=== PATIENT | male | born 1960 | race Caucasian/White ===

== ENCOUNTER 2018-10-28 21:35 | Inpatient (IN) ==
[2018-10-28] MEDS ORDERED: Furosemide 40 MG/4 ML VIAL IVP ONE (21:50)
[2018-10-28] MEDS ORDERED: Ipratropium/Albuterol Neb 3 ML IH ONE (22:05)
[2018-10-28 22:07] LABS: ABG Base Excess 12 mEq/L (-2 to 3); ABG HCO3 40 mEq/L (21-27); ABG Oxygen Saturation 97 % (95-98); ABG PCO2 78 mmHg (35-45); ABG PH 7.32 pH Units (7.32-7.45); ABG PO2 105 mmHg (85-104); ABG TCO2 43 mEq/L (20-26)
--- NOTE | 2018-10-28 22:08 | Emergency Department Note ---
Disposition Clinical Impression: Hypoxia Congestive heart failure Qualifiers: Heart failure type: unspecified Heart failure chronicity: unspecified Qualified Code(s): I50.9 - Heart failure, unspecified COPD (chronic obstructive pulmonary disease) Qualifiers: COPD type: unspecified COPD Qualified Code(s): J44.9 - Chronic obstructive pulmonary disease, unspecified Disposition: Admitted As Inpatient Condition: Good General Adult HPI - General Chief complaint: ED Shortness of Breath/Dyspnea Stated complaint: Oxygen 78. Time Seen by Provider: 10/28/18 21:44 Source: patient, family Limitations: no limitations - History of Present Illness Pain Scale: 0 - Related Data Home Medications Medication Instructions Recorded Confirmed FLUoxetine HCl [Prozac] 40 mg PO DAILY 05/25/16 10/08/18 Levothyroxine [Synthroid] 88 mcg PO DAILY 05/25/16 10/08/18 Ropinirole HCl [Requip] 4 mg PO TID 05/25/16 10/08/18 Albuterol Sulfate [Ventolin Hfa] 2 puff IH Q6H PRN 10/08/18 10/08/18 Atorvastatin Calcium [Lipitor] 80 mg PO HS 10/08/18 10/08/18 Carvedilol 3.125 mg PO BID 10/08/18 10/08/18 Clopidogrel [Plavix] 75 mg PO DAILY 10/08/18 10/08/18 Losartan Potassium 50 mg PO DAILY 10/08/18 10/08/18 Nitroglycerin [Nitrostat] 0.4 mg SL AD PRN 10/08/18 10/08/18 Pioglitazone HCl 45 mg PO DAILY 10/08/18 10/08/18 glipiZIDE [Glipizide] 10 mg PO DAILY 10/08/18 10/08/18 Previous Rx's Medication Instructions Recorded Aspirin Enteric Coated [Aspirin EC] 81 mg PO DAILY 30 Days #30 10/10/18 tablet. Furosemide [Lasix] 40 mg PO BIDDIURETIC 30 Days #60 10/10/18 tablet Allergies Allergy/AdvReac Type Severity Reaction Status Date / Time lidocaine Allergy See Verified 05/25/16 12:43 [From Terramycin (with Comments lidocaine)] oxytetracycline Allergy See Verified 05/25/16 12:43 [From Terramycin (with Comments lidocaine)] Penicillins Allergy See Verified 05/25/16 12:43 Comments Sulfa (Sulfonamide Allergy See Verified 05/25/16 12:43 Antibiotics) Comments Past Medical History - Past Medical History Medical history: Reports: COPD, diabetes, thyroid disease, other Surgical history: Reports: other Psychiatric history: Reports: anxiety, depression - Social History Smoking Status: Current every day smoker Smokeless Tobacco Status: No Alcohol use: Reports: occasionally Drug use: Reports: none Physical Exam - General Limitations: no limitations General appearance: alert, in no apparent distress Course Vital Signs Temperature 98 F 10/28/18 21:47 Pulse Rate 52 10/28/18 21:47 Respiratory Rate 24 10/28/18 21:47 Blood Pressure 104/57 10/28/18 21:47 O2 Sat by Pulse Oximetry 100 10/28/18 21:47 Temperature 98 F 10/28/18 21:47 Pulse Rate 52 10/28/18 21:47 Respiratory Rate 24 10/28/18 21:47 Blood Pressure 104/57 10/28/18 21:47 O2 Sat by Pulse Oximetry 100 10/28/18 21:47 Oxygen Delivery Oxygen Delivery Nasal Cannula Attestation Statement - Attestation Attestation: I examined this patient and my medical decision-making was reviewed with the Resident Physician. I agree with the documented findings, disposition and treatment plan as described except to the extent set forth below. 57 year old male presents to the ED with complaints of dyspnea nd hypoxia. spouse at bedside states that he has been as low as 88% on 3LNC at home and has been complaining of increased fluid overload since his discharge from the hospitla recently. Patient will be started on IV lasix and bipap for acute change in mentation and increase in tachypnea. He was 78% on traige however is 96% on 3LNC at bedside now.
--- NOTE | 2018-10-28 22:11 | Emergency Department Note ---
Disposition Clinical Impression: Acute respiratory failure with hypoxia and hypercarbia Congestive heart failure Qualifiers: Heart failure type: unspecified Heart failure chronicity: unspecified Qualified Code(s): I50.9 - Heart failure, unspecified COPD (chronic obstructive pulmonary disease) Qualifiers: COPD type: unspecified COPD Qualified Code(s): J44.9 - Chronic obstructive pulmonary disease, unspecified Disposition: Admitted As Inpatient Condition: Fair Referrals: NONE,PCP [Primary Care Provider] - Forms: ED Satisfaction Letter Time of Disposition: 22:47 SOB HPI - General Stated Complaint: Oxygen 78. Time Seen by Provider: 10/28/18 21:44 Source: patient, family Limitations: no limitations Nursing Notes Reviewed: Yes Vital Signs Reviewed: Yes - History of Present Illness 37-year-old male presents from home with bedside for evaluation of hypoxia, bradycardia. Patient has a pulse ox at home. At approximately noon, he noted that his pulse ox was in the low 80s/70s. Patient's arrived home from work at approximate 6:30. He noted his heart rate was below 60 and his pulse ox was in the high 70s. This was on room air. He is on room air during the daytime with BiPAP in 2 L of normal oxygen at night. Patient also notes progressive lower extremity swelling which is been ongoing for the past week or so. PMH: COPD, CAD status post stent hypertension, diabetes, obstructive sleep apnea on CPAP, CHF ROS: No sign positive: As above Negative: Fever, chills, nausea, vomiting, cough, chest pain, palpitations, abdominal pain, change of bowel or bladder habits. - Related Data Home Medications Medication Instructions Recorded Confirmed FLUoxetine HCl [Prozac] 40 mg PO DAILY 05/25/16 10/08/18 Levothyroxine [Synthroid] 88 mcg PO DAILY 05/25/16 10/08/18 Ropinirole HCl [Requip] 4 mg PO TID 05/25/16 10/08/18 Albuterol Sulfate [Ventolin Hfa] 2 puff IH Q6H PRN 10/08/18 10/08/18 Atorvastatin Calcium [Lipitor] 80 mg PO HS 10/08/18 10/08/18 Carvedilol 3.125 mg PO BID 10/08/18 10/08/18 Clopidogrel [Plavix] 75 mg PO DAILY 10/08/18 10/08/18 Losartan Potassium 50 mg PO DAILY 10/08/18 10/08/18 Nitroglycerin [Nitrostat] 0.4 mg SL AD PRN 10/08/18 10/08/18 Pioglitazone HCl 45 mg PO DAILY 10/08/18 10/08/18 glipiZIDE [Glipizide] 10 mg PO DAILY 10/08/18 10/08/18 Previous Rx's Medication Instructions Recorded Aspirin Enteric Coated [Aspirin EC] 81 mg PO DAILY 30 Days #30 10/10/18 tablet. Furosemide [Lasix] 40 mg PO BIDDIURETIC 30 Days #60 10/10/18 tablet Allergies Allergy/AdvReac Type Severity Reaction Status Date / Time lidocaine Allergy See Verified 05/25/16 12:43 [From Terramycin (with Comments lidocaine)] oxytetracycline Allergy See Verified 05/25/16 12:43 [From Terramycin (with Comments lidocaine)] Penicillins Allergy See Verified 05/25/16 12:43 Comments Sulfa (Sulfonamide Allergy See Verified 05/25/16 12:43 Antibiotics) Comments All systems ED: reviewed and negative except as stated. Review of Systems: As Per HPI Past Medical History - Past Medical History Medical history: Reports: COPD, diabetes, thyroid disease, other Surgical history: Reports: other Psychiatric history: Reports: anxiety, depression - Social History Smoking Status: Current every day smoker Smokeless Tobacco Status: No Alcohol use: Reports: occasionally Drug use: Reports: none Physical Exam Vital Signs Reviewed General: Patient is alert, oriented, and in mild respiratory distress. He is bradypneic, bradycardic. Somnolent during interview. Head: atraumatic, normocephalic Eye: normal appearance, PERRL, no scleral icterus, no conjunctival injection ENT: mucous membranes moist, normal external ear exam Neck: normal inspection, trachea midline, full ROM Chest: normal inspection, symmetric chest rise Respiratory: Poor respiratory effort. Bilateral breath sounds are equal with poor air entry and scattered wheeze. No rales or rhonchi. Cardiovascular: Regular rate and rhythm. No clicks, rubs, gallops, or murmors. Normal heart sounds. Bilateral radial pulses 2/4 equal. Bilateral lower extremity venous stasis changes. 2+ pitting edema bilaterally. Abdomen: Bowel sounds present normoactive. Abdomen is soft, nondistended, and nontender. No guarding or rebound. Musculoskeletal: Spontaneously moving all extremities. Skin: warm, dry, intact. Neuro: GCS 15. No focal neurologic deficits observed. Psych: Patient's affect is appropriate for situation. - General Limitations: no limitations General appearance: alert, in no apparent distress Course Course Narrative: EV/EV echocardiogram w enhance Impressions: LVEF 55-60%. Mild concentric left ventricular hypertrophy. Indeterminate diastolic function. Atypical septal motion of unclear etiology. Clinical correlation is advised.. The right ventricle was not well visualized but appears grossly normal in function. The valves were not well visualized. No obvious significant valvular dysfunction. Unable to estimate RVSP due to lack of TR jet. Left Ventricular Wall Motion: Rest Echo Findings All wall segments showed normal motion. Crash cart placed bedside secondary to heart rate persistently in the high 40s. Patient placed on BiPAP. Triple dose of DuoNeb's. ABG. EKG. Lasix; patient appears clinically volume overloaded. EKG dated at 21:52 interpreted as first-degree AV block with a rate of 48, QRS 116, QTC 457, prolonged AL at approximately 200 ms. Normal axis. Nonspecific ST-T changes. Compared to previous EKG dated 10/06/2018 showing no acute ischemic changes or comparison. Serum hematology shows pancytopenia. Unknown cause at this time. Patient does have mild anemia however this is consistent with his baseline. ABG shows hypercarbia with CO2 78. This could explain the patients somnolence. He is placed on BiPAP. Serum chemistry shows normal renal function. Patients glucose was 42; provided one amp of D50. BNP slightly elevated at 102. Given patients obesity, this is an unreliable value. 40 mg IV Lasix provided. Chest x-ray shows pulmonary edema. This correlates clinically with acute exacerbation of congestive heart failure. Repeat glucose 114. Patient's blood pressure intake with systolic 104. After placement on BiPAP, he became hypotensive in the systolic 80s. Patient was awoken; blood pressure improved to systolic 97. Blood pressure cuff was repositioned and systolic returns to baseline of systolic 104. Provided 500 mL IV fluids regarding concern of possible third spacing. We will also check TSH to rule out myxedema as well as provide stress dose steroids. Patient's heart rate continues to be bradycardic in the mid to high 40s. He is on carvedilol is a rate limiting medication. Comparative EKG shows that he has previously been bradycardic in the 50s. I discussed the above with the admitting hospitalist, Dr. Harris, who agrees to accept the patient for continued evaluation and management of acute exacerbation CHF, acute on chronic respiratory failure. Will order blood cultures at his request. Chest X-Ray 10/28/18 21:50 IMPRESSION: Bilateral heterogeneous opacities may relate to mild pulmonary edema. Superimposed infectious/inflammatory process is not entirely excluded. Cardiomegaly. Overall, findings could relate to congestive heart failure. D/ / Jorge Sessions / Jorge Sessions Interpreting Provider: Jorge Sessions Vital Signs Temperature 98 F 10/28/18 21:47 Pulse Rate 52 10/28/18 21:47 Respiratory Rate 24 10/28/18 21:47 Blood Pressure 104/57 10/28/18 21:47 O2 Sat by Pulse Oximetry 100 10/28/18 21:47 Temperature 98 F 10/28/18 21:47 Pulse Rate 48 10/28/18 23:43 Respiratory Rate 16 10/28/18 23:43 Blood Pressure 93/58 10/28/18 23:43 O2 Sat by Pulse Oximetry 100 10/28/18 23:43 Oxygen Delivery Oxygen Delivery Bipap Shortness of Breath/Dyspnea - Lab Data Result diagrams: 10/28/18 22:02 10/28/18 22:02 Lab Results 10/28/18 10/28/18 10/28/18 Range/Units 22:02 22:02 22:02 WBC 3.5 L (4.3-11.1) K/mcL RBC 3.53 L (4.19-5.50) M/mcL Hgb 9.7 L (12.9-16.9) g/dL Hct 32.5 L (37.5-50.1) % MCV 92.1 (83.0-100.0) fL MCH 27.5 L (28.0-33.3) pg MCHC 29.8 L (31.6-35.5) g/dL RDW 17.1 H (11.5-14.5) % Plt Count 69 L (140-400) K/mcL MPV 9.1 L (9.4-12.4) fL Immature Gran % 0.6 (0-4) % Seg Neutrophils % 46.0 % Lymphocytes % 19.1 % Monocytes % 7.8 % Eosinophils % 25.1 % Basophils % 1.4 % Neutrophils # 1.6 (1.6-8.9) K/mcL Lymphocytes # 0.7 (0.6-4.6) K/mcL Monocytes # 0.3 (0.0-1.3) K/mcL Eosinophils # 0.9 H (0.0-0.6) K/mcL Basophils # 0.1 (0.0-0.2) K/mcL Immature Plt Fraction 2.1 (1.1-6.1) % PT 12.2 H (9.4-12.1) Seconds INR 1.1 APTT 46.5 H (26.0-36.0) Seconds ABG pH (7.32-7.45) pH Units ABG pCO2 (35-45) mmHg ABG pO2 (85-104) mmHg ABG HCO3 (21-27) mEq/L ABG Total CO2 (20-26) mEq/L ABG O2 Saturation (95-98) % ABG Base Excess (-2 to 3) mEq/L O2 Delivery Device Inspired O2 (1-15=lpm [id number]=%) Sodium (136-145) mEq/L Potassium (3.5-5.1) mEq/L Chloride (98-107) mEq/L Carbon Dioxide (23-29) mEq/L BUN (6-20) mg/dL Creatinine (0.70-1.30) mg/dL Est GFR ( Amer) (> 60) Est GFR (Non-Af Amer) (> 60) BUN/Creatinine Ratio (6-26) Glucose (70-105) mg/dL Calculated Osmolality (280-300) Lactic Acid (0.5-2.2) mmol/L Calcium (8.6-10.3) mg/dL Total Bilirubin (0.3-1.0) mg/dL Direct Bilirubin (0.0-0.2) mg/dL Indirect Bilirubin (0.0-1.2) mg/dL AST (13-39) Units/L ALT (7-52) Units/L Alkaline Phosphatase (34-104) Units/L Troponin I (< 0.04) ng/mL B-Natriuretic Peptide 102 H (Less than 100) pg/mL Serum Total Protein (6.4-8.9) g/dL Albumin (3.5-5.7) g/dL Globulin (2.4-3.5) g/dL Albumin/Globulin Ratio (1.1-2.2) 10/28/18 10/28/18 10/28/18 Range/Units 22:02 22:04 23:25 WBC (4.3-11.1) K/mcL RBC (4.19-5.50) M/mcL Hgb (12.9-16.9) g/dL Hct (37.5-50.1) % MCV (83.0-100.0) fL MCH (28.0-33.3) pg MCHC (31.6-35.5) g/dL RDW (11.5-14.5) % Plt Count (140-400) K/mcL MPV (9.4-12.4) fL Immature Gran % (0-4) % Seg Neutrophils % % Lymphocytes % % Monocytes % % Eosinophils % % Basophils % % Neutrophils # (1.6-8.9) K/mcL Lymphocytes # (0.6-4.6) K/mcL Monocytes # (0.0-1.3) K/mcL Eosinophils # (0.0-0.6) K/mcL Basophils # (0.0-0.2) K/mcL Immature Plt Fraction (1.1-6.1) % PT (9.4-12.1) Seconds INR APTT (26.0-36.0) Seconds ABG pH 7.32 (7.32-7.45) pH Units ABG pCO2 78 H* (35-45) mmHg ABG pO2 105 H (85-104) mmHg ABG HCO3 40 H (21-27) mEq/L ABG Total CO2 43 H (20-26) mEq/L ABG O2 Saturation 97 (95-98) % ABG Base Excess 12 H (-2 to 3) mEq/L O2 Delivery Device Cannula Inspired O2 3.0 (1-15=lpm [id number]=%) Sodium 135 L (136-145) mEq/L Potassium 4.1 (3.5-5.1) mEq/L Chloride 94 L (98-107) mEq/L Carbon Dioxide 39 H (23-29) mEq/L BUN 22 H (6-20) mg/dL Creatinine 0.84 (0.70-1.30) mg/dL Est GFR ( Amer) > 60 (> 60) Est GFR (Non-Af Amer) > 60 (> 60) BUN/Creatinine Ratio 26 (6-26) Glucose 42 L (70-105) mg/dL Calculated Osmolality 280 (280-300) Lactic Acid 0.6 (0.5-2.2) mmol/L Calcium 8.5 L (8.6-10.3) mg/dL Total Bilirubin 0.8 (0.3-1.0) mg/dL Direct Bilirubin 0.2 (0.0-0.2) mg/dL Indirect Bilirubin 0.6 (0.0-1.2) mg/dL AST 35 (13-39) Units/L ALT 16 (7-52) Units/L Alkaline Phosphatase 73 (34-104) Units/L Troponin I < 0.03 (< 0.04) ng/mL B-Natriuretic Peptide (Less than 100) pg/mL Serum Total Protein 6.7 (6.4-8.9) g/dL Albumin 3.3 L (3.5-5.7) g/dL Globulin 3.4 (2.4-3.5) g/dL Albumin/Globulin Ratio 1.0 L (1.1-2.2)
[2018-10-28 22:15] LABS: Hematocrit 32.5 % (37.5-50.1); Monocytes % 7.8 %; Red Cell Distribution Width 17.1 % (11.5-14.5)
[2018-10-28 22:17] LABS: Basophils # 0.1 K/mcL (0.0-0.2); Basophils % 1.4 %; Eosinophils # 0.9 K/mcL (0.0-0.6); Eosinophils % 25.1 %; Hemoglobin 9.7 g/dL (12.9-16.9); Immature Granulocytes % 0.6 % (0-4); Immature Platelets 2.1 % (1.1-6.1); Lymphocytes # 0.7 K/mcL (0.6-4.6); Lymphocytes % 19.1 %; Mean Corpuscular HGB Conc 29.8 g/dL (31.6-35.5); Mean Corpuscular Hemoglobin 27.5 pg (28.0-33.3); Mean Corpuscular Volume 92.1 fL (83.0-100.0); Mean Platelet Volume 9.1 fL (9.4-12.4); Monocytes # 0.3 K/mcL (0.0-1.3); Neutrophils # 1.6 K/mcL (1.6-8.9); Red Blood Count 3.53 M/mcL (4.19-5.50)
[2018-10-28 22:21] LABS: Platelet Count 69 K/mcL (140-400)
[2018-10-28 22:22] LABS: INR 1.1; Prothrombin Time 12.2 Seconds (9.4-12.1)
[2018-10-28 22:25] LABS: Activated Partial Thrombo Time 46.5 Seconds (26.0-36.0)
[2018-10-28 22:36] LABS: BUN/Creatinine Ratio 26 (6-26); Blood Urea Nitrogen 22 mg/dL (6-20); Calcium 8.5 mg/dL (8.6-10.3); Carbon Dioxide 39 mEq/L (23-29); Chloride 94 mEq/L (98-107); Glucose 42 mg/dL (70-105); Osmolality,Calculated 280 (280-300); Potassium 4.1 mEq/L (3.5-5.1); Sodium 135 mEq/L (136-145); eGFR For Non-African Americans > 60 (> 60)
[2018-10-28 22:37] LABS: Troponin I < 0.03 ng/mL (< 0.04)
[2018-10-28] MEDS ORDERED: *HR* Dextrose 50 % in Water (Syg) 50 ML SYRINGE IVP ONE (22:39)
[2018-10-28] MEDS ORDERED: 0.9 % Sodium Chloride 500 ML IVC ONE (23:06)
[2018-10-28] MEDS ORDERED: Hydrocortisone Sodium Succ 100 MG/2 ML VIAL IVP ONE (23:06)
[2018-10-28] MEDS ORDERED: *HR* Atropine Sulfate 1 MG/10 ML SYRINGE IVP ONE (23:06)
[2018-10-28 23:27] LABS: Alanine Aminotransferase 16 Units/L (7-52); Albumin 3.3 g/dL (3.5-5.7); Alkaline Phosphatase 73 Units/L (34-104); Aspartate Amino Transferase 35 Units/L (13-39); Bilirubin,Direct 0.2 mg/dL (0.0-0.2); Bilirubin,Indirect 0.6 mg/dL (0.0-1.2); Bilirubin,Total 0.8 mg/dL (0.3-1.0); Globulin 3.4 g/dL (2.4-3.5); Total Protein 6.7 g/dL (6.4-8.9)
[2018-10-29 00:43] LABS: Thyroid Stimulating Hormone 0.379 mcIU/mL (0.340-5.600)
[2018-10-29] MEDS ORDERED: Naloxone 0.4 MG/ML INJ IVP PRN (02:46)
[2018-10-29] MEDS ORDERED: Dextrose 4 GM Chewable Tablets PO PRN ×2 (02:48)
[2018-10-29] MEDS ORDERED: D5% in Water 1,000 ML IVC PRN (02:48)
[2018-10-29] MEDS ORDERED: *HR* Dextrose 50 % in Water (Syg) 50 ML SYRINGE IVP PRN (02:48)
[2018-10-29] MEDS ORDERED: Dextrose Gel 15 GM/37.5 ML TUBE PO PRN ×2 (02:48)
--- NOTE | 2018-10-29 03:04 | Internal Med History&Physical ---
<Darin Pedersenrett W - Last Filed: 10/29/18 05:35> Date of Encounter: 10/29/18 Time of Encounter: 02:55 Internal Medicine - H&P: HPI Chief complaint: SOB Admitted From: Home History of present illness: Mr. Burr is a 57 year old male with past medical history of COPD, coronary artery disease with stent placement, DM, YENNY requiring CPAP and congestive heart failure, obesity. presents to the ED with hypoxia and bradycardia. Patient has a pulse ox at home and noted he had saturations in the 70s and 80s. He tried to wait it out and his came home they noted his pulse rate was below 60 and his sats were in the high 70s on room air. Decided to come into the ED. Patient has obstructive sleep apnea requiring BiPAP with 2 L at night. Patient states he has not felt like consult today. He has had difficulty walking due to just generalized weakness. Denies any confusion but does admit to not being himself. Patient states lower extremities swelling is been worse over the past week or 2. Patient denies any fevers, chills, cough, night sweats. Patient was placed on BiPAP in the ED due to acute respiratory failure with hypercarbia. Patient was also given atropine due to bradycardia. EKG found first-degree AV block. Patient denies chest pain, abdominal pain, nausea, vomiting, diarrhea, numbness, tingling, localized weakness, rash, lightheadedness, dysuria Past Med Surg Social Fam HX - Past Medical History Medical history: COPD, diabetes, thyroid disease, other Additional medical history: sleep apnea Psychiatric history: anxiety, depression - Past Surgical History Surgical History: other Additional surgical history: Cardiac stent x 1. tonsillectomy - Social History Smoking Status: Current every day smoker Packs per day: 1 Smokeless Tobacco Status: No Alcohol use: occasionally Drug use: none - Family History Mother Living Status: Hx Family Cardiac Disorders: Yes Hx Family Respiratory Disorders: No Hx Family Cancer: Yes Hx Family GI Disorders: No Hx Family Endocrine Disorder: Yes Hx Family Neuromuscular Disorders: No Hx Family Neurologic Disorders: No Hx Family HEENT Disorders: Yes Hx Family Autoimmune Disorders: No Internal Medicine - H&P: Meds FLUoxetine HCl [Prozac] 40 mg PO DAILY 05/25/16 [History] Levothyroxine [Synthroid] 88 mcg PO DAILY 05/25/16 [History] Ropinirole HCl [Requip] 4 mg PO TID 05/25/16 [History] Albuterol Sulfate [Ventolin Hfa] 2 puff IH Q6H PRN 10/08/18 [History] Atorvastatin Calcium [Lipitor] 80 mg PO HS 10/08/18 [History] Carvedilol 3.125 mg PO BID 10/08/18 [History] Clopidogrel [Plavix] 75 mg PO DAILY 10/08/18 [History] Losartan Potassium 50 mg PO DAILY 10/08/18 [History] Nitroglycerin [Nitrostat] 0.4 mg SL AD PRN 10/08/18 [History] Pioglitazone HCl 45 mg PO DAILY 10/08/18 [History] glipiZIDE [Glipizide] 10 mg PO DAILY 10/08/18 [History] Aspirin Enteric Coated [Aspirin EC] 81 mg PO DAILY 30 Days #30 tablet. [Rx] Furosemide [Lasix] 40 mg PO BIDDIURETIC 30 Days #60 tablet 10/10/18 [Rx] Allergy/AdvReac Type Severity Reaction Status Date / Time lidocaine Allergy See Verified 05/25/16 12:43 [From Terramycin (with Comments lidocaine)] oxytetracycline Allergy See Verified 05/25/16 12:43 [From Terramycin (with Comments lidocaine)] Penicillins Allergy See Verified 05/25/16 12:43 Comments Sulfa (Sulfonamide Allergy See Verified 05/25/16 12:43 Antibiotics) Comments All Systems PM: A 10-system review of systems was performed and is negative for pertinent findings except as documented above in the HPI. - Constitutional Constitutional: as per HPI - EENT Eyes: as per HPI - Cardiovascular Cardiovascular ROS IM: as per HPI - Respiratory Respiratory: as per HPI - Gastrointestinal Gastrointestinal: as per HPI - Genitourinary Genitourinary ROS male: as per HPI - Musculoskeletal Musculoskeletal ROS IM: as per HPI - Integumentary Integumentary IM: as per HPI - Neurological Neurological ROS: as per HPI - Psychiatric Psychiatric: as per HPI - Endocrine Endocrine IM: as per HPI - Constitutional Vitals: Temp Pulse Resp BP Pulse Ox 97.4 F L 51 12 146/82 100 10/29/18 02:24 10/29/18 02:04 10/29/18 02:04 10/29/18 02:04 10/29/18 02:04 General appearance: Present: A&O X 3, morbidly obese, answers questions appropriately Exam: Patient is lying in bed. He is conversational. Patient takes increase time to answer questions but does answer appropriately - Head Head exam: Present: atraumatic, normocephalic - Eye Eye exam: Present: PERRL, conjuntiva pink, sclera anicteric Pupils: Present: PERRL - ENT ENT exam: Present: mucous membranes moist - Neck Neck exam general surgery: Present: supple, trachea midline. Absent: lymphadenopathy - Respiratory Respiratory exam: Present: CTAB, wheezes (Moderate diffuse). Absent: respiratory distress Additional comments: Patient was placed off BiPAP as nurses were trying to get a sublingual temperature. He was remained on nasal cannula during the entire interview and did not appear to be in any respiratory distress - Cardiovascular Cardiovascular exam: Present: RRR, +S1, +S2. Absent: diastolic murmur, gallop, rubs, systolic murmur - GI/Abdominal GI/Abdominal exam: Present: normal bowel sounds, soft, no peritoneal signs. Absent: distended, tenderness - Extremities Exam Extremities exam: Present: pedal edema (2+), warm, radial pulses palpable and symmetrical. Absent: tenderness Additional comments: Bilateral lower extremity chronic skin changes with dryness and cracking and swelling - Neurological Exam Neurological exam: Present: alert, oriented X3. Absent: no focal deficits, pronater drift, facial droop, speech deficit - Psychiatric Psychiatric exam: Present: normal affect, normal mood - Skin Skin exam: Present: dry, intact Internal Med - H&P Results - Labs CBC & Chem 7: 10/28/18 22:02 10/28/18 22:02 Labs: Short CBC 10/28/18 Range/Units 22:02 WBC 3.5 L (4.3-11.1) K/mcL Hgb 9.7 L (12.9-16.9) g/dL Hct 32.5 L (37.5-50.1) % Plt Count 69 L (140-400) K/mcL Neutrophils # 1.6 (1.6-8.9) K/mcL BMP 10/28/18 22:02 Sodium 135 L Potassium 4.1 Chloride 94 L Carbon Dioxide 39 H BUN 22 H Creatinine 0.84 Glucose 42 L Calcium 8.5 L Cardiac Enzymes 10/28/18 Range/Units 22:02 Troponin I < 0.03 (< 0.04) ng/mL Liver Function 10/28/18 Range/Units 22:02 Total Bilirubin 0.8 (0.3-1.0) mg/dL Direct Bilirubin 0.2 (0.0-0.2) mg/dL AST 35 (13-39) Units/L ALT 16 (7-52) Units/L Alkaline Phosphatase 73 (34-104) Units/L Albumin 3.3 L (3.5-5.7) g/dL - ABG Interpretation ABG results: 10/28/18 22:04 ABG pH 7.32 ABG pCO2 78 H* ABG pO2 105 H ABG HCO3 40 H ABG Total CO2 43 H ABG O2 Saturation 97 ABG Base Excess 12 H - Impressions ITS Impressions Chest X-Ray 10/28/18 21:50 IMPRESSION: Bilateral heterogeneous opacities may relate to mild pulmonary edema. Superimposed infectious/inflammatory process is not entirely excluded. Cardiomegaly. Overall, findings could relate to congestive heart failure. D/ / Jorge Sessions / Jorge Sessions Interpreting Provider: Jorge Sessions - Assessment and Plan (1) Acute on chronic respiratory failure with hypoxia and hypercapnia Current Visit: No Status: Acute Assessment and plan: Patient with a history of COPD and obstructive sleep apnea requiring BiPAP at night Noted to have hypoxia and bradycardia at home via home pulse ox monitor. Pulses in high 70s and pulse in low 50s Presented to ED requiring BiPAP Chest x-ray, cardiomegaly and a possible pneumonia or edema bilateral ABG pH 7.32, CO2 78, PO2 105, HCO3 40, O2 sat 97% Patient has remained afebrile, has pancytopenia: low suspicion for infectious process. Likely COPD exacerbation, low suspicion for CHF exacerbation Plan: broadspectrum antibiotics deescalate as necesary Continue BiPAP at night, trial off bipap in the AM Repeat ABG Diabetic diet during the day Scheduled duo nebs Prednisone, taper as necesary (2) Bradycardia Current Visit: Yes Status: Acute Assessment and plan: Patient had heart rates in the mid to high 40s. Patient is on carvedilol EKG is interpreted as first-degree AV block her heart rate is 56 QRS 116, QTC 47, prolonged CO at approximately [address] segment changes Patient has been bradycardic in the past 0.5 mg atropine was given showed improvement of heart rate Current heart rate 54 Plan: hall monitor Hold carvedilol Continue to monitor (3) Hypoglycemia Current Visit: Yes Status: Acute Assessment and plan: Patient did have a blood glucose 42 1 amp of D50 was given Repeat glucose is 114 Patient has a history of diabetes mellitus Plan: Continue to monitor Consider sliding scale insulin if blood glucose becomes elevated (4) COPD (chronic obstructive pulmonary disease) Current Visit: Yes Status: Acute Assessment and plan: History of COPD Physical exams with diffuse wheezing Possible COPD exacerbation Plan as #1 above Qualifiers: COPD type: unspecified COPD Qualified Code(s): J44.9 - Chronic obstructive pulmonary disease, unspecified (5) Congestive heart failure Current Visit: Yes Status: Acute Assessment and plan: History of congestive heart failure BNP 102 Clinically patient appears to be volume overloaded 1 dose of Lasix was given in ED Continue home dose Lasix Qualifiers: Heart failure type: unspecified Heart failure chronicity: unspecified Qualified Code(s): I50.9 - Heart failure, unspecified (6) Pancytopenia Current Visit: Yes Status: Acute Assessment and plan: Chronic etiology unknown Heme/onc consulted, appreciate recs (7) Obstructive sleep apnea syndrome Current Visit: No Status: Chronic Assessment and plan: Continue BiPAP Findings portable (8) CAD (coronary artery disease) Current Visit: No Status: Acute Assessment and plan: Continue medications once verified EKG found no ischemic changes Troponin within normal limits Qualifiers: Coronary Disease-Associated Artery/Lesion type: [place] artery [place] vs. transplanted heart: [place] heart Associated angina: without angina Qualified Code(s): I25.10 - Atherosclerotic heart disease of [place] coronary artery wit hout angina pectoris (9) Hypothyroidism Current Visit: No Status: Chronic Assessment and plan: Continue Synthroid Qualifiers: Hypothyroidism type: acquired Qualified Code(s): E03.9 - Hypothyroidism, unspecified (10) Diabetes mellitus Current Visit: No Status: Chronic Assessment and plan: Watch for hypoglycemia Sliding-scale insulin Qualifiers: Diabetes mellitus type: type 2 Diabetes mellitus residential insulin use: without residential use Diabetes mellitus complication status: with unspecified complications Qualified Code(s): E11.8 - Type 2 diabetes mellitus with unspecified complications (11) Hypertension Current Visit: No Status: Acute Assessment and plan: Hold medications due to bradycardia and hypotension Patient did show some low blood pressures Old medications continue to monitor Qualifiers: Hypertension type: essential hypertension Qualified Code(s): I10 - Essential (primary) hypertension (12) Morbid obesity with BMI of 50.0-59.9, adult Current Visit: No Status: Chronic (13) DVT prophylaxis Current Visit: No Status: Acute Assessment and plan: heparin sq - Time Spent With Patient Total time spent is greater than 50% in coordination of care (as documented) at patient's floor/unit and/or counseling patient: <Jarrod Harris - Last Filed: 10/29/18 06:51> Date of Encounter: 10/29/18 Time of Encounter: 06:15 - Constitutional Constitutional: fatigue, lethargy, no chills, no fever(s), no night sweats - EENT Eyes: no change in vision Ears: no ear pain, no tinnitus Nose, mouth and throat: nasal congestion, sinus pressure, no sore throat - Cardiovascular Cardiovascular ROS IM: dyspnea, dyspnea on exertion, edema, no chest pain - Respiratory Respiratory: cough, dyspnea, wheezing, chest congestion, no hemoptysis, no excessive phlegm production, no change in phlegm color, no pain with cough - Gastrointestinal Gastrointestinal: no abdominal pain, no diarrhea, no hematemesis, no hematochezia, no melena, no nausea, no vomiting - Genitourinary Genitourinary ROS male: no dysuria, no flank pain, no hematuria - Musculoskeletal Musculoskeletal ROS IM: no arthralgias, no back pain - Integumentary Integumentary IM: no rash, no jaundice - Neurological Neurological ROS: no dizziness, no focal weakness, no frequent falls, no headache(s) - Psychiatric Psychiatric: confusion, no anxiety - Endocrine Endocrine IM: fatigue, no polydipsia, no polyuria - Allergic/Immunologic Allergic/Immunologic: no GI upset with certain foods - Constitutional Vitals: Temp Pulse Resp BP Pulse Ox 97.4 F L 51 18 146/82 97 10/29/18 02:24 10/29/18 02:04 10/29/18 04:25 10/29/18 02:04 10/29/18 04:25 General appearance: Present: A&O X 3, no acute distress, answers questions appropriately - Head Head exam: Present: normal inspection - Eye Eye exam: Present: PERRL. Absent: scleral icterus - ENT ENT exam: Present: mucous membranes moist, normal oropharynx - Neck Neck exam general surgery: Present: supple, trachea midline. Absent: tenderness, nuchal rigidity, thyromegaly - Respiratory Respiratory exam: Present: rales (right base), wheezes (mild). Absent: CTAB, respiratory distress - Cardiovascular Cardiovascular exam: Present: distant heart sounds, +S1, +S2. Absent: diastolic murmur, systolic murmur - GI/Abdominal GI/Abdominal exam: Present: normal bowel sounds, soft. Absent: tenderness - Extremities Exam Extremities exam: Present: full ROM, pedal edema, warm, radial pulses palpable and symmetrical. Absent: calf tenderness Additional comments: chronic venous stasis changes - Neurological Exam Neurological exam: Present: alert, CN II-XII intact, oriented X3, no focal deficits Internal Med - H&P Results - Labs CBC & Chem 7: 10/28/18 22:02 10/28/18 22:02 Labs: Short CBC 10/28/18 Range/Units 22:02 WBC 3.5 L (4.3-11.1) K/mcL Hgb 9.7 L (12.9-16.9) g/dL Hct 32.5 L (37.5-50.1) % Plt Count 69 L (140-400) K/mcL Neutrophils # 1.6 (1.6-8.9) K/mcL BMP 10/28/18 22:02 Sodium 135 L Potassium 4.1 Chloride 94 L Carbon Dioxide 39 H BUN 22 H Creatinine 0.84 Glucose 42 L Calcium 8.5 L Cardiac Enzymes 10/28/18 Range/Units 22:02 Troponin I < 0.03 (< 0.04) ng/mL Liver Function 10/28/18 Range/Units 22:02 Total Bilirubin 0.8 (0.3-1.0) mg/dL Direct Bilirubin 0.2 (0.0-0.2) mg/dL AST 35 (13-39) Units/L ALT 16 (7-52) Units/L Alkaline Phosphatase 73 (34-104) Units/L Albumin 3.3 L (3.5-5.7) g/dL - ABG Interpretation ABG results: 10/28/18 22:04 ABG pH 7.32 ABG pCO2 78 H* ABG pO2 105 H ABG HCO3 40 H ABG Total CO2 43 H ABG O2 Saturation 97 ABG Base Excess 12 H - Impressions ITS Impressions Chest X-Ray 10/28/18 21:50 IMPRESSION: Bilateral heterogeneous opacities may relate to mild pulmonary edema. Superimposed infectious/inflammatory process is not entirely excluded. Cardiomegaly. Overall, findings could relate to congestive heart failure. D/ / Jorge Sessions / Jorge Sessions Interpreting Provider: Jorge Sessions - Time Spent With Patient Total time spent is greater than 50% in coordination of care (as documented) at patient's floor/unit and/or counseling patient: - Attending Attestation I discussed the patient OUZINKIE, past medical history, review of systems, lab data, imaging data, and exam findings with Dr. Pedersen. I then saw and examined patient independently as well. Based upon his presentation, laboratory analysis, and imaging findings, I am concerned about underlying pneumonia/COPD flareup as etiology for his altered mental status and respiratory failure. Presently, he is wide awake, oriented 3, and in no distress. However, based upon my discussion with the ER staff earlier, he presented confused, weak, hypotensive, bradycardic, and in respiratory failure. He was placed on BiPAP with improvement in symptoms and clinical picture. I asked the ER staff to obtain blood cultures, but these were not obtained prior to initiation of antibiotics. As such, we will order blood cultures to be obtained as soon as possible. Patient has evidence of pancytopenia which could be secondary to sepsis. However, this is chronic and not new. Nonetheless, we will obtain blood cultures to rule out bacteremia. I questioned him about liver disease or splenic disease. He denies any history of cirrhosis, alcohol use or abuse, or any functional asplenia. Given his pancytopenia, I recommend hematology consultation as he may need bone marrow biopsy and/or further hematologic workup. Although frustrated, patient agrees with my recommendation and plan of care. Other than my comments above and noted exam findings, I agree with Dr. Pedersen's assessment and plan.
[2018-10-29] MEDS: Ipratropium/Albuterol Neb 3 ML IH SCH ×4 (04:25→22:20)
[2018-10-29] MEDS ORDERED: Azithromycin 500 MG in D5% in Water 250 ML IVPB ONE (04:57)
[2018-10-29] MEDS: *HR* Heparin 5,000 UNIT/ML VIAL SQ SCH ×2 (06:16→17:04)
[2018-10-29 07:05] LABS: Basophils % 0.8 %; Hemoglobin 9.7 g/dL (12.9-16.9); Immature Granulocytes % 1.6 % (0-4)
[2018-10-29 07:07] LABS: Eosinophils # 0.2 K/mcL (0.0-0.6); Eosinophils % 6.4 %; Hematocrit 32.9 % (37.5-50.1); Immature Platelets 2.2 % (1.1-6.1); Lymphocytes # 0.5 K/mcL (0.6-4.6); Lymphocytes % 20.4 %; Mean Corpuscular HGB Conc 29.5 g/dL (31.6-35.5); Mean Corpuscular Hemoglobin 27.5 pg (28.0-33.3); Mean Corpuscular Volume 93.2 fL (83.0-100.0); Mean Platelet Volume 9.3 fL (9.4-12.4); Monocytes # 0.1 K/mcL (0.0-1.3); Monocytes % 3.6 %; Neutrophils # 1.7 K/mcL (1.6-8.9); Red Blood Count 3.53 M/mcL (4.19-5.50); Segmented Neutrophils % 67.2 %
[2018-10-29 07:09] LABS: Platelet Count 62 K/mcL (140-400)
[2018-10-29 07:10] LABS: Platelet Estimate Marked Decrease (Normal)
[2018-10-29 07:22] LABS: Alanine Aminotransferase 15 Units/L (7-52); Albumin 3.3 g/dL (3.5-5.7); Albumin/Globulin Ratio 0.9 (1.1-2.2); Alkaline Phosphatase 75 Units/L (34-104); Aspartate Amino Transferase 34 Units/L (13-39); BUN/Creatinine Ratio 32 (6-26); Bilirubin,Total 0.8 mg/dL (0.3-1.0); Blood Urea Nitrogen 25 mg/dL (6-20); Calcium 8.7 mg/dL (8.6-10.3); Carbon Dioxide 38 mEq/L (23-29); Chloride 93 mEq/L (98-107); Globulin 3.5 g/dL (2.4-3.5); Glucose 145 mg/dL (70-105); Osmolality,Calculated 283 (280-300); Potassium 4.9 mEq/L (3.5-5.1); Sodium 133 mEq/L (136-145); Total Protein 6.8 g/dL (6.4-8.9); eGFR For Non-African Americans > 60 (> 60)
[2018-10-29] MEDS: Furosemide 40 MG TABLET PO SCH ×2 (07:48→17:07)
[2018-10-29] MEDS: FLUoxetine 20 MG CAPSULE PO SCH ×2 (08:06→17:07)
[2018-10-29] MEDS: predniSONE 20 MG TABLET PO SCH ×2 (08:06→17:07)
[2018-10-29] MEDS: cefTRIAXone 1,000 MG in Water for inj. (sterile) 20 ML 10 ML IVP SCH (08:49)
[2018-10-29] MEDS ORDERED: rOPINIRole 1 MG TABLET PO SCH ×2 (09:00→21:00)
--- NOTE | 2018-10-29 09:09 | Event Note ---
Date of Encounter: 10/29/18 Time of Encounter: 10:00 Mr Burr is 57 with pmhx copd cad s/p pci DM YENNY, obesity, cpap HS, CHF w echo 09/2018 EF 55-60%, indeterminant diastolic dysfunction who presented to ED with hypoxia and bradycardia. Had home o2 sats 70s on room air and HR was below 60. Noted to ahve acute resp failure with hypercarbia and placed on bipap. He was given atropine and EKG showed first degree AV block. awake, bipap in place. no sob , cough or wheezing. feeling overall better. denies any cp, pressure, palpitations. no presyncope though he notes he hasn't been out of bed. refused repeat abg, but agreeable to vbg. no family present. Updated as to today's plan of care. gen- alert, awake,appears stated age, obese eyes- pupils equal round cv- reg rate and rhythm, normal s1,s2, no murmurs appreciated, no pitting le edema, no jvd lungs- ctabl, no wheezing, rhonchi or crackles, normal resp effort on bipap abd- soft, non tender, non distended, + bs, no HSM appreciated neuro- AAOx3, CN grossly intact, no focal deficits Acute on Chronic RF with hypoxia and hypercapnia CXR possible pna and edema Possible COPDE, Less likley Diastolic CHF exacerbation given exam and BNP only 102 -azithro, rocephin, vanc, bipap, repeat abg refused by pt, vbg obtained, corrected ph 7.3, would estimate pco2 to be about 82, cont continuous bipap, nebs, steroids, s/p IV lasix in ED, cont to monitor fluid status, cont home lasix -will attempt to identify organism -will attempt to obtain abg later today Bradycardia, sinus, first degree AVB on coreg at home, hx bradycardia in past, s/p atropine x1 in ED, ekg without ischemic changes, glucose was 42 and may have been contributing, tsh wnl -cont tele, hold coreg, check echo Pancytopenia, uk etiology- heme onc consulted, US liver pending CAD hx- no ischemic ekg changes, trop normal, cont home statin, plavix, asa, holding coreg and losartan Hypothyroidism-synthroid DM- SSI and prn hypoglycemics, home oral agents held HTN- hypotensive in ED, holding home meds as above, add back as needed/able Morbid obesity- bmi 58.2, lifestyle modifications, pcp fu vte ppx sqh
--- NOTE | 2018-10-29 10:09 | Oncology Inp Consult Note ---
<Rosario Alves - Last Filed: 10/29/18 13:10> Date of Encounter: 10/29/18 Time of Encounter: 09:45 Assessment and Plan (1) Pancytopenia Status: Acute Assessment and plan: Pancytopenia Leukopenia: 06/08: WBC 4.3 ANC 3.1 10/12: WBC 3.1-3.8, ANC 1.6-2 10/29/18: WBC 2.5, ANC 1.7 Anemia normocytic, hypochromic 06/08: Hbg 13.4 10/12: Hgb 9.3-9.7 10/29/18: Hgb 9.7 Thrombocytopenia 06/08: Plts 97 10/12: Plts 77-99 10/29/18: Plts 62 PT 12.2/ INR 1.1 aPTT 46.5 Peripheral smear: Erythrocytes: Moderate anemia with 1+ hypochromia and 1+ anisocytosis; otherwise, unremarkable morphology. Platelets: Moderate thrombocytopenia. Leukocytes: Automated differential confirmed on manual review. Mildly decreased lymphocytes. Unremarkable leukocyte morphology. Iron profile: Fe 34, saturation 11% transferrin 212 , ferritin 143 B12 1091, folate 8.9, LDH 187 Acute hepatitis panel and HIV pending Plan: Repeat PT/INR and aPTT due to prolonged PT and aPTT. Liver ultrasound per primary team today. LFT's WNL May consider a bone marrow aspirate and biopsy to rule out underlying malignancy. (2) DVT prophylaxis Status: Acute Assessment and plan: Patient receiving Heparin 5000 units SQ every 12 hours. Plan: Continue to monitor. If platelet count < 50, hold Heparin injections. Consider SCD's, if possible. (3) CAD (coronary artery disease) Status: Acute Assessment and plan: Patient currently receiving Plavix 75 mg and Aspirin 81 mg PO daily. Coreg on hold due to bradycardia upon admission. Qualifiers: Coronary Disease-Associated Artery/Lesion type: [place] artery [place] vs. transplanted heart: [place] heart Associated angina: without angina Qualified Code(s): I25.10 - Atherosclerotic heart disease of [place] coronary artery without angina pectoris - Data of Consult Patient: new to practice Consult date: 10/29/18 Requesting Physician: Jarrod Harris MD Primary Care Provider: PCP NONE - Consult Narrative Reason for consult: pancytopenia History of present illness: Mikhail, a 57 male with COPD, CHF, CAD with PCI, YENNY, tobacco abuse, DM, obesity, and hypothyroidism, presented to the ED on 10/28/18 for hypoxia and bradycardia. He was recently admitted to [facility] for CHF exacerbation and discharged on 10/10/18. He noted worsening dyspnea, increased oxygen needs and oxygen saturations of 70- 80s at home. He notes that he uses a CPAP overnight with 3L O2, but does not usually require oxygen during the day. While in the ED, he was given atropine for his bradycardia. EKG showed 1st degree AV block. He was also placed on bipap due to acute respiratory failure. He is currently on 2.5L O2 per NC with sats >92%. He is being treated with broad-spectrum antibiotics. Coreg and Losartanon hold due to bradycardia and hypotension in the ED. Hematology/Oncology consulted for pancytopenia.10/29/18 CBC: leukopenia WBC 2.5, ANC 1.7, anemia Hgb 9.7, Hct 32.9%, thrombocytopenia 62. CBC in 2016 WNL, except platelet count of 97. Mr. Burr is awake and alert in bed this morning. He is oriented to person, place, time, and situation. He describes his recent hospitalization and worsening symptoms while at home. He notes being concerned about falling oxygen levels and trying to wait for his to come home. He eventually called half- brother to bring him to the ED. He notes that he was aware of his low blood counts, but unable to remember how long they have been low. He denies previous workup. Denies history of bone marrow biopsy. 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 Alcohol use: occasional: 1-2 times per year. Elicit drug use: smoked marijuana a few days ago. No known family history of blood disorders. Mother () cancer, but unknown type. Sister () breast cancer. Past Med Surg Social Fam HX - Past Medical History Medical history: COPD, diabetes, thyroid disease, other Additional medical history: sleep apnea Psychiatric history: anxiety, depression - Past Surgical History Surgical History: other Additional surgical history: Cardiac stent x 1. tonsillectomy - Social History Smoking Status: Current every day smoker Packs per day: 1 Smokeless Tobacco Status: No Alcohol use: occasionally Drug use: none - Family History Mother Living Status: Hx Family Cardiac Disorders: Yes Hx Family Respiratory Disorders: No Hx Family Cancer: Yes (unknown type) Hx Family GI Disorders: No Hx Family Endocrine Disorder: Yes Hx Family Neuromuscular Disorders: No Hx Family Neurologic Disorders: No Hx Family HEENT Disorders: Yes Hx Family Autoimmune Disorders: No Sister Adopted: No Race: Living Status: Hx Family Cancer: Yes (breast) Medications and Allergies FLUoxetine HCl [Prozac] 40 mg PO DAILY 05/25/16 [History] Levothyroxine [Synthroid] 88 mcg PO DAILY 05/25/16 [History] Ropinirole HCl [Requip] 4 mg PO TID 05/25/16 [History] Albuterol Sulfate [Ventolin Hfa] 2 puff IH Q6H PRN 10/08/18 [History] Atorvastatin Calcium [Lipitor] 80 mg PO HS 10/08/18 [History] Carvedilol 3.125 mg PO BID 10/08/18 [History] Clopidogrel [Plavix] 75 mg PO DAILY 10/08/18 [History] Losartan Potassium 50 mg PO DAILY 10/08/18 [History] Nitroglycerin [Nitrostat] 0.4 mg SL AD PRN 10/08/18 [History] Pioglitazone HCl 45 mg PO DAILY 10/08/18 [History] glipiZIDE [Glipizide] 10 mg PO DAILY 10/08/18 [History] Aspirin Enteric Coated [Aspirin EC] 81 mg PO DAILY 30 Days #30 tablet. 10/10/18 [Rx] Furosemide [Lasix] 40 mg PO BIDDIURETIC 30 Days #60 tablet 10/10/18 [Rx] Allergy/AdvReac Type Severity Reaction Status Date / Time lidocaine Allergy See Verified 05/25/16 12:43 [From Terramycin (with Comments lidocaine)] oxytetracycline Allergy See Verified 05/25/16 12:43 [From Terramycin (with Comments lidocaine)] Penicillins Allergy See Verified 05/25/16 12:43 Comments Sulfa (Sulfonamide Allergy See Verified 05/25/16 12:43 Antibiotics) Comments Constitutional: Present: fatigue, stops breathing during sleep. Absent: anorexia, chills, fever(s), headache(s), night sweats, weight loss Cardiovascular: Present: dyspnea, leg edema, orthopnea, pedal edema, slow heart rate. Absent: chest pain, irregular heart rhythm, palpitations, rapid heart rate Respiratory: Present: dyspnea, wheezing. Absent: chest congestion, change in phlegm color Gastrointestinal: Absent: abdominal pain, constipation, diarrhea, hematemesis, hematochezia, melena, nausea, vomiting Musculoskeletal: Present: joint swelling, muscle weakness, numbness. Absent: tingling Integumentary: Absent: unusual bruising Neurological: Present: weakness. Absent: abnormal speech, behavioral changes, confusion, frequent falls, headache(s), loss of vision, syncope Hematologic/Lymphatic: Absent: easy bleeding, easy bruising, lymphadenopathy Oncology - Exam - Constitutional General appearance: cooperative, morbidly obese, no no acute distress - Head Head exam: Present: normal inspection, normocephalic - Respiratory Respiratory exam: Present: prolonged expiratory phase, wheezes. Absent: accessory muscle use, rales, rhonchi, stridor - Cardiovascular Cardiovascular exam: Present: RRR, +S1, +S2 Additional comments: HR 60s on continuous monitoring. - GI/Abdominal GI/Abdominal exam: Present: normal bowel sounds. Absent: tenderness Additional comments: obese - Expanded Lower Extremity Exam Lower Leg exam: Present: swelling. Absent: tenderness Foot/Toe exam: Present: swelling. Absent: tenderness - Neurological Exam Neurological exam: Present: oriented X3, strengths equal and symetr throughout. Absent: facial droop, speech deficit - Psychiatric Psychiatric exam: Present: normal affect, normal mood - Skin Skin exam: Present: dry, warm Consult Discharge Plan - Plan Referrals: NONE,PCP [Primary Care Provider] - Inpatient Charges Provider: Dr. Gabrielle Pagan <Cate Pagan - Last Filed: 10/29/18 17:19> Date of Encounter: 10/29/18 - Data of Consult Requesting Physician: Jarrod Harris MD Primary Care Provider: PCP NONE - Attending Attestation Pancytopenia, workup peripheral blood showing normal B-12 levels, additional workup pending. Liver ultrasound suggestive off cirrhosis, possible hypersplenism contributing to pancytopenia. Additional workup if necessary we will proceed as an outpatient. Currently does not need any transfusion support Discussed plan of care with patient. US liver findings were not available when pt was seen this afternoon. I examined this patient and my medical decision-making was reviewed with the Advanced Practice Nurse, Flakita Alves. I agree with the documented findings, disposition and treatment plan as described except to the extent set forth below. Inpatient Charges Provider: Dr. Gabrielle Pagan Consult - Inpatient: [id number]
[2018-10-29 10:56] LABS: % Iron Saturation 11 % (20-55); Iron 34 mcg/dL (65-175); Lactate Dehydrogenase 187 Units/L (140-271); Transferrin 212 mg/dL (203-362)
[2018-10-29 11:14] LABS: Ferritin 143 ng/mL (20-250)
[2018-10-29 11:21] LABS: Folate 8.9 ng/mL (3.0-16.0)
[2018-10-29 11:22] LABS: Vitamin B12 1091 pg/mL (250-1100)
[2018-10-29 12:05] LABS: Hepatitis B Surface Antigen Nonreactive (Nonreactive)
[2018-10-29 12:10] LABS: VBG HCO3 40 mEq/L (21-27); VBG PCO2 88 mmHg (41-51); VBG PH 7.27 pH Units (7.32-7.42); VBG PO2 34 mmHg (25-50)
[2018-10-29 12:34] LABS: Hepatitis B Core IgM Nonreactive (Nonreactive); Hepatitis C Virus Antibody Nonreactive (Nonreactive)
[2018-10-29 12:36] LABS: Hepatitis A Antibody IgM Nonreactive (Nonreactive)
[2018-10-29] MEDS ORDERED: Perflutren Lipid Microsphere 1.3 ML in 0.9 % Sodium Chloride 8.7 ML IVP ONE (14:18)
[2018-10-29 14:21] LABS: HIV-1&2 Antibody & p24 Ag Reactive (Nonreactive)
[2018-10-29] MEDS ORDERED: Perflutren Lipid Microsphere 2 ML VIAL ONE (14:26)
--- NOTE | 2018-10-29 16:15 | Electrocardiograph Report ---
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
[2018-10-29] MEDS: Aspirin Enteric Coated 81 MG Tablet PO SCH (17:07)
[2018-10-29] MEDS: rOPINIRole 1 MG TABLET PO SCH (18:51)
[2018-10-29] MEDS: Insulin LISPRO 300 UNITS/3 ML VIAL SQ SCH (20:04)
[2018-10-30] MEDS: Ipratropium/Albuterol Neb 3 ML IH SCH ×4 (03:56→22:12)
[2018-10-30] MEDS: rOPINIRole 1 MG TABLET PO SCH ×3 (04:22→21:15)
[2018-10-30 06:03] LABS: Basophils % 0.9 %; Immature Granulocytes % 2.5 % (0-4)
[2018-10-30 06:05] LABS: Eosinophils # 0.1 K/mcL (0.0-0.6); Eosinophils % 1.9 %; Hematocrit 30.2 % (37.5-50.1); Hemoglobin 9.4 g/dL (12.9-16.9); Lymphocytes # 0.5 K/mcL (0.6-4.6); Lymphocytes % 16.6 %; Mean Corpuscular HGB Conc 31.1 g/dL (31.6-35.5); Mean Corpuscular Hemoglobin 27.6 pg (28.0-33.3); Mean Corpuscular Volume 88.6 fL (83.0-100.0); Mean Platelet Volume 10.3 fL (9.4-12.4); Monocytes # 0.1 K/mcL (0.0-1.3); Monocytes % 4.4 %; Neutrophils # 2.4 K/mcL (1.6-8.9); Red Blood Count 3.41 M/mcL (4.19-5.50); Red Cell Distribution Width 16.9 % (11.5-14.5); Segmented Neutrophils % 73.7 %
[2018-10-30 06:07] LABS: VBG HCO3 37 mEq/L (21-27); VBG PCO2 64 mmHg (41-51); VBG PH 7.37 pH Units (7.32-7.42); VBG PO2 78 mmHg (25-50)
[2018-10-30 06:08] LABS: Platelet Count 72 K/mcL (140-400)
[2018-10-30] MEDS: *HR* Heparin 5,000 UNIT/ML VIAL SQ SCH ×2 (06:08→17:41)
[2018-10-30 06:26] LABS: Alanine Aminotransferase 16 Units/L (7-52); Albumin 3.4 g/dL (3.5-5.7); Alkaline Phosphatase 73 Units/L (34-104); Aspartate Amino Transferase 37 Units/L (13-39); BUN/Creatinine Ratio 35 (6-26); Bilirubin,Total 0.6 mg/dL (0.3-1.0); Blood Urea Nitrogen 27 mg/dL (6-20); Calcium 8.9 mg/dL (8.6-10.3); Carbon Dioxide 38 mEq/L (23-29); Chloride 95 mEq/L (98-107); Globulin 3.5 g/dL (2.4-3.5); Glucose 242 mg/dL (70-105); Magnesium 1.9 mg/dL (1.6-2.6); Osmolality,Calculated 293 (280-300); Potassium 4.9 mEq/L (3.5-5.1); Sodium 135 mEq/L (136-145); Total Protein 6.9 g/dL (6.4-8.9); eGFR For Non-African Americans > 60 (> 60)
--- NOTE | 2018-10-30 08:12 | Internal Med Progress Note ---
Hospitalist Progress Note - Encounter Date of Encounter: 10/30/18 Time of Encounter: 11:20 - Subjective Interval History: awake in chair at bedside o2 sats stable on 02 nc and normal mentation gave permission to discuss test results in front of his He is overall feeling much better, no sob at rest or with exertion. no cp, presyncope or palpitations. HR on tele remains in 70s. O2 sats 95% on 3L NC Denies cp, pressure. Discussed US results suggesting cirrhosis. He denies etoh use history and has never been told this info on imaging before. Discussed how cmp was largely unremarkable and he may fu outpt for further work up and he is agreeable. Then discussed HIV screen being +. He is very suprised and denies any hx of unprotected sex, IVDA, blood transfusions. he does have tattoos. He is aware we are waiting confirmatory test that is pending. all questions answered. - Exam Vitals: Temp Pulse Resp BP Pulse Ox 98.5 F 76 16 168/73 97 10/30/18 07:06 10/30/18 07:06 10/30/18 07:06 10/30/18 07:06 10/30/18 07:06 Exam: gen- alert, awake,appears stated age, obese eyes- pupils equal round , no scleral icterus, no conjunctival pallor cv- reg rate and rhythm, normal s1,s2, no murmurs appreciated, no pitting le edema lungs- ctabl, no wheezing, rhonchi or crackles, normal resp effort on room air abd- soft, non tender, non distended, + bs neuro- AAOx3 - Assessment and Plan (1) Acute respiratory failure with hypoxia and hypercarbia Current Visit: Yes Status: Acute Assessment and Plan: Acute on Chronic RF with hypoxia and hypercapnia CXR possible pna and edema Possible COPDE, Less likely Diastolic CHF exacerbation given exam and BNP only 102 -pco2 on vbg down significantly with him wearing bipap overnight he is refusing any abgs -02 nc with goal o2 sat 88-92% -azithro, rocephin, vanc -check mrsa screen and then would be able to dc vanc -cont steroids, nebs - cont home lasix -will attempt to identify organism, studies never sent yesterday, reordered today -check overnight bipap qualification (2) Bradycardia Current Visit: Yes Status: Resolved Assessment and Plan: Bradycardia, sinus, first degree AVB echo unremarkable on coreg at home, hx bradycardia in past, s/p atropine x1 in ED, ekg without ischemic changes, glucose was 42 and may have been contributing, tsh wnl -cont tele, hold coreg, monitor lytes (3) Pancytopenia Current Visit: Yes Status: Acute Assessment and Plan: Pancytopenia, uk etiology Liver US suboptimal study, possibel hepatic edema, but acute hepatitis given his lab work is unlikely , +findings suggestive of cirrhosis which pt denies hx of , may be contributing Heme following -HIV screen postive, confirmatory test sent and pending, if + will update heme and order hepatitis testing -fu heme recs, may require BM bx -no pharm vte ppx if platelets drop below 50 (4) CAD (coronary artery disease) Current Visit: No Status: Acute Assessment and Plan: CAD hx- no ischemic ekg changes, trop normal -cont home statin, plavix, asa,losartan; holding coreg (5) COPD exacerbation Current Visit: No Status: Acute Assessment and Plan: 2/2 above cont treatment as above (6) Hypertension Current Visit: No Status: Acute Assessment and Plan: hypotensive in ED, held home meds Now hypertensive -resume losartan -no coreg due to bradycardia -will cont to monitor -will require outpt fu (7) Morbid obesity Current Visit: No Status: Acute Assessment and Plan: bmi 58.2, lifestyle modifications, pcp fu (8) Diabetes mellitus Current Visit: No Status: Chronic Assessment and Plan: SSI and prn hypoglycemics, home oral agents held (9) Hypothyroidism Current Visit: No Status: Chronic Assessment and Plan: synthroid (10) Screening for human immunodeficiency virus Current Visit: Yes Status: Acute Assessment and Plan: Positive screen additional testing pending pt aware (11) Cirrhosis of liver Current Visit: Yes Status: Suspected Assessment and Plan: Possible cirrhosis of liver given Liver US findings CMP only remarkable for low albumin, liver function is otherwise intact pt aware -will require outpt fu DVT Prophylaxis: sqh - Time Spent with Patient Total time spent is greater than 50% in coordination of care (as documented) at patient's floor/unit and/or counseling patient: 25 - 35 minutes Plan of Care Discussed with: patient Internal Medicine: Result - Labs CBC & Chem 7: 10/30/18 05:41 10/30/18 05:41 Labs: Short CBC 10/29/18 10/30/18 Range/Units 06:43 05:41 WBC 2.5 L 3.2 L (4.3-11.1) K/mcL Hgb 9.7 L 9.4 L (12.9-16.9) g/dL Hct 32.9 L 30.2 L (37.5-50.1) % Plt Count 62 L 72 L (140-400) K/mcL Neutrophils # 1.7 2.4 (1.6-8.9) K/mcL BMP 10/30/18 05:41 Sodium 135 L Potassium 4.9 Chloride 95 L Carbon Dioxide 38 H BUN 27 H Creatinine 0.77 Glucose 242 H Calcium 8.9 Liver Function 10/30/18 Range/Units 05:41 Total Bilirubin 0.6 (0.3-1.0) mg/dL AST 37 (13-39) Units/L ALT 16 (7-52) Units/L Alkaline Phosphatase 73 (34-104) Units/L Albumin 3.4 L (3.5-5.7) g/dL - ABG Interpretation ABG results: ABG ABG pH 7.32 pH Units (7.32-7.45) 10/28/18 22:04 ABG pCO2 78 mmHg (35-45) H* 10/28/18 22:04 ABG pO2 105 mmHg (85-104) H 10/28/18 22:04 ABG O2 Saturation 97 % (95-98) 10/28/18 22:04 PT/INR, D-dimer PT 12.2 Seconds (9.4-12.1) H 10/28/18 22:02 - Impressions Impressions Echocardiogram Limited Views 10/29/18 09:06 Impressions: LVEF 55%. Definity echo contrast was used. Mild concentric left ventricular hypertrophy. Mildly dilated left ventricle by 2-D measurement. Left Ventricular Wall Motion: Rest Echo Findings All wall segments showed normal motion. Findings: Study Quality * Technically adequate exam. ECG Findings * Normal sinus rhythm. Left Ventricle * Mild concentric left ventricular hypertrophy. * Mildly dilated left ventricle. * LVEF 55%. * Definity echo contrast was used. Right Ventricle * Normal RV systolic function. Aorta * Normally sized aortic root. Pericardium * There is no pericardial effusion present. Liver Ultrasound 10/29/18 14:30 IMPRESSION: 1. Nonspecific diffuse hypoattenuation throughout the liver, suboptimally evaluated could be related to diffuse hepatic edema from hepatitis. 2. Mild hepatomegaly. 3. Lobular hepatic contours are suggestive of sequela from cirrhosis. 4. Status post cholecystectomy. D/ / Didier Sheffield / Didier Sheffield Interpreting Provider: Didier Sheffield Consult Discharge Plan - Plan Referrals: NONE,PCP [Primary Care Provider] - (4) CAD (coronary artery disease) Qualifiers: Coronary Disease-Associated Artery/Lesion type: [place] artery [place] vs. transplanted heart: [place] heart Associated angina: without angina Qualified Code(s): I25.10 - Atherosclerotic heart disease of [place] coronary artery without angina pectoris (6) Hypertension Qualifiers: Hypertension type: essential hypertension Qualified Code(s): I10 - Essential (primary) hypertension (8) Diabetes mellitus Qualifiers: Diabetes mellitus type: type 2 Diabetes mellitus [place] insulin use: without half-way use Diabetes mellitus complication status: with unspecified complications Qualified Code(s): E11.8 - Type 2 diabetes mellitus with unspecified complications (9) Hypothyroidism Qualifiers: Hypothyroidism type: acquired Qualified Code(s): E03.9 - Hypothyroidism, unspecified (11) Cirrhosis of liver Qualifiers: Ascites presence: unspecified
[2018-10-30] MEDS: Azithromycin 250 MG TABLET PO SCH (09:02)
[2018-10-30] MEDS: Aspirin Enteric Coated 81 MG Tablet PO SCH (09:02)
[2018-10-30] MEDS: predniSONE 20 MG TABLET PO SCH (09:02)
[2018-10-30] MEDS: FLUoxetine 20 MG CAPSULE PO SCH (09:03)
[2018-10-30] MEDS: Furosemide 40 MG TABLET PO SCH ×2 (09:03→16:47)
[2018-10-30] MEDS: cefTRIAXone 1,000 MG in Water for inj. (sterile) 20 ML 10 ML IVP SCH (09:07)
[2018-10-30] MEDS: Insulin LISPRO 300 UNITS/3 ML VIAL SQ SCH ×3 (13:19→21:15)
[2018-10-30] MEDS ORDERED: Acetaminophen 325 MG TABLET PO PRN (21:59)
[2018-10-30 22:55] LABS: Adenovirus Not Detected (Not Detect); Bordetella Pertussis Not Detected (Not Detect); Chlamydophila pneumoniae Not Detected (Not Detect); Coronavirus 229E Not Detected (Not Detect); Coronavirus HKU1 Not Detected (Not Detect); Coronavirus NL63 Not Detected (Not Detect); Coronavirus OC43 Not Detected (Not Detect); Human Metapneumovirus Not Detected (Not Detect); Human Rhinovirus/Enterovirus Not Detected (Not Detect); Influenza A Subtype 2009 H1 Not Detected (Not Detect); Influenza A Untypeable Not Detected (Not Detect); Influenza B Not Detected (Not Detect); Mycoplasma pneumoniae Not Detected (Not Detect); Parainfluenza Virus 1 Not Detected (Not Detect); Parainfluenza Virus 2 Not Detected (Not Detect); Parainfluenza Virus 3 Not Detected (Not Detect); Parainfluenza Virus 4 Not Detected (Not Detect); Respiratory Syncytial Virus Not Detected (Not Detect)
[2018-10-31 03:10] LABS: HIV-1 Ab Supplemental NEGATIVE (Negative); HIV-2 Ab Supplemental NEGATIVE (Negative)
[2018-10-31] MEDS: Ipratropium/Albuterol Neb 3 ML IH SCH ×4 (03:43→22:12)
[2018-10-31] MEDS: rOPINIRole 1 MG TABLET PO SCH ×3 (06:29→20:40)
[2018-10-31] MEDS: *HR* Heparin 5,000 UNIT/ML VIAL SQ SCH (06:29)
[2018-10-31 06:37] LABS: Mean Corpuscular HGB Conc 30.4 g/dL (31.6-35.5)
[2018-10-31 06:40] LABS: Basophils % 0.9 %; Eosinophils # 0.1 K/mcL (0.0-0.6); Hematocrit 29.6 % (37.5-50.1); Immature Granulocytes % 3.4 % (0-4); Immature Platelets 1.1 % (1.1-6.1); Lymphocytes # 0.8 K/mcL (0.6-4.6); Lymphocytes % 23.3 %; Mean Corpuscular Hemoglobin 27.6 pg (28.0-33.3); Mean Corpuscular Volume 90.8 fL (83.0-100.0); Mean Platelet Volume 9.2 fL (9.4-12.4); Monocytes # 0.3 K/mcL (0.0-1.3); Monocytes % 7.5 %; Neutrophils # 2.1 K/mcL (1.6-8.9); Platelet Count 65 K/mcL (140-400); Red Blood Count 3.26 M/mcL (4.19-5.50); Red Cell Distribution Width 16.7 % (11.5-14.5); Segmented Neutrophils % 60.9 %
[2018-10-31 06:47] LABS: VBG HCO3 38 mEq/L (21-27); VBG PCO2 55 mmHg (41-51); VBG PH 7.45 pH Units (7.32-7.42); VBG PO2 145 mmHg (25-50)
[2018-10-31 06:56] LABS: BUN/Creatinine Ratio 37 (6-26); Blood Urea Nitrogen 23 mg/dL (6-20); Calcium 8.6 mg/dL (8.6-10.3); Carbon Dioxide 38 mEq/L (23-29); Chloride 96 mEq/L (98-107); Glucose 202 mg/dL (70-105); Osmolality,Calculated 293 (280-300); Potassium 4.5 mEq/L (3.5-5.1); Sodium 137 mEq/L (136-145); eGFR For Non-African Americans > 60 (> 60)
[2018-10-31] MEDS: cefTRIAXone 1,000 MG in Water for inj. (sterile) 20 ML 10 ML IVP SCH (08:49)
[2018-10-31] MEDS: Furosemide 40 MG TABLET PO SCH ×2 (08:50→17:16)
[2018-10-31] MEDS: Aspirin Enteric Coated 81 MG Tablet PO SCH (08:50)
[2018-10-31] MEDS: Azithromycin 250 MG TABLET PO SCH (08:50)
[2018-10-31] MEDS: predniSONE 20 MG TABLET PO SCH (08:51)
[2018-10-31] MEDS: FLUoxetine 20 MG CAPSULE PO SCH (08:52)
[2018-10-31] MEDS: Insulin LISPRO 300 UNITS/3 ML VIAL SQ SCH ×4 (08:55→20:40)
--- NOTE | 2018-10-31 09:43 | Internal Med Progress Note ---
Hospitalist Progress Note - Encounter Date of Encounter: 10/31/18 Time of Encounter: 11:00 - Subjective Interval History: awake, at bedside. staff noting he had diarrhea. pt had one loose bm this morning and one last night. described as brown and soft to loose. not watery. no further episodes, no abd pain, n/v. resp status back to baseline. he points out discoloration on left hand. no pain, itching, no hand numbness/tingling or pain with rom, no injury. denies cp, pressure, palpitations or syncope. - Exam Vitals: Temp Pulse Resp BP Pulse Ox 97.5 F L 70 16 139/75 100 10/31/18 08:53 10/31/18 08:53 10/31/18 08:53 10/31/18 08:53 10/31/18 08:53 Exam: gen- alert, awake,appears stated age, obese cv- reg rate and rhythm, normal s1,s2, no murmurs appreciated, no pitting le edema lungs- ctabl, no wheezing, rhonchi or crackles, normal resp effort on o2 nc skin- left hand dorsum redness, on further exam appears this may be petechiae extending to just above wrist, faint similar discoloration on left hand dorsum, ecchymosis on arms at blood draw sites, no petechia like markings elsewhere on skin neuro- AAOx3 - Assessment and Plan (1) Acute respiratory failure with hypoxia and hypercarbia Current Visit: Yes Status: Acute Assessment and Plan: Acute on Chronic RF with hypoxia and hypercapnia CXR possible pna and edema Possible COPDE, Less likely Diastolic CHF exacerbation given exam and BNP only 102 Most likely related to + INFLUENZA A -pco2 on vbg down significantly -02 nc with goal o2 sat 88-92% MRSA swab neg- dc vanc strep/legiionella neg flu + begin tamiflu -azithro, rocephin -cont steroids x 5 days PO (end 11/02), nebs - cont home lasix -check overnight bipap qualification (2) Bradycardia Current Visit: Yes Status: Resolved Assessment and Plan: Bradycardia, sinus, first degree AVB echo unremarkable on coreg at home, hx bradycardia in past, s/p atropine x1 in ED, ekg without ischemic changes, glucose was 42 and may have been contributing, tsh wnl Resolved -cont tele, hold coreg (3) Pancytopenia Current Visit: Yes Status: Acute Assessment and Plan: Pancytopenia, [place] etiology Liver US suboptimal study, possibel hepatic edema, but acute hepatitis given his lab work is unlikely , +findings suggestive of cirrhosis which pt denies hx of , may be contributing Heme following -HIV screen postive, confirmatory test sent and pending, if + will update heme -fu heme recs, may require BM bx 10/31 appreciate petechiae on bl hands, worse on left--stop heparin and cont to monitor, heme should return to see pt in am (thursday) (4) CAD (coronary artery disease) Current Visit: No Status: Acute Assessment and Plan: CAD hx- no ischemic ekg changes, trop normal -cont home statin, plavix, asa,losartan; holding coreg (5) COPD exacerbation Current Visit: No Status: Acute Assessment and Plan: 2/2 Pssoble pna, organism [place] and Influenza A infection cont treatment as above (6) Hypertension Current Visit: No Status: Acute Assessment and Plan: hypotensive in ED, held home meds Now hypertensive -resumed losartan 50 mg and had elevated bps in evening, now improved -no coreg due to bradycardia -will cont to monitor this afternoon for further adjustments -will require outpt fu (7) Morbid obesity Current Visit: No Status: Acute Assessment and Plan: bmi 58.2, lifestyle modifications, pcp fu (8) Diabetes mellitus Current Visit: No Status: Chronic Assessment and Plan: SSI and prn hypoglycemics, home oral agents held (9) Hypothyroidism Current Visit: No Status: Chronic Assessment and Plan: synthroid (10) Screening for human immunodeficiency virus Current Visit: Yes Status: Acute Assessment and Plan: Positive screen additional testing pending pt aware (11) Cirrhosis of liver Current Visit: Yes Status: Suspected Assessment and Plan: Possible cirrhosis of liver given Liver US findings CMP only remarkable for low albumin, liver function is otherwise intact, hep panel neg pt aware -will require outpt fu DVT Prophylaxis: scds - Time Spent with Patient Total time spent is greater than 50% in coordination of care (as documented) at patient's floor/unit and/or counseling patient: Internal Medicine: Result - Labs CBC & Chem 7: 10/31/18 06:23 10/31/18 06:23 Labs: Short CBC 10/31/18 Range/Units 06:23 WBC 3.5 L (4.3-11.1) K/mcL Hgb 9.0 L (12.9-16.9) g/dL Hct 29.6 L (37.5-50.1) % Plt Count 65 L (140-400) K/mcL Neutrophils # 2.1 (1.6-8.9) K/mcL BMP 10/31/18 06:23 Sodium 137 Potassium 4.5 Chloride 96 L Carbon Dioxide 38 H BUN 23 H Creatinine 0.63 L Glucose 202 H Calcium 8.6 - ABG Interpretation ABG results: ABG ABG pH 7.32 pH Units (7.32-7.45) 10/28/18 22:04 ABG pCO2 78 mmHg (35-45) H* 10/28/18 22:04 ABG pO2 105 mmHg (85-104) H 10/28/18 22:04 ABG O2 Saturation 97 % (95-98) 10/28/18 22:04 PT/INR, D-dimer PT 12.2 Seconds (9.4-12.1) H 10/28/18 22:02 Consult Discharge Plan - Plan Referrals: NONE,PCP [Primary Care Provider] - (4) CAD (coronary artery disease) Qualifiers: Coronary Disease-Associated Artery/Lesion type: [place] artery [place] vs. 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
[2018-10-31] MEDS ORDERED: Aminoglycoside Consult 1 EACH MC ONE (09:59)
[2018-11-01] MEDS: Ipratropium/Albuterol Neb 3 ML IH SCH ×4 (04:25→22:15)
[2018-11-01] MEDS: rOPINIRole 1 MG TABLET PO SCH ×3 (05:31→22:19)
[2018-11-01 05:44] LABS: Basophils # 0.1 K/mcL (0.0-0.2); Basophils % 1.4 %; Eosinophils # 0.2 K/mcL (0.0-0.6); Eosinophils % 5.6 %; Hematocrit 32.8 % (37.5-50.1); Hemoglobin 9.7 g/dL (12.9-16.9); Immature Granulocytes % 3.6 % (0-4); Mean Corpuscular HGB Conc 29.6 g/dL (31.6-35.5); Mean Corpuscular Hemoglobin 27.2 pg (28.0-33.3); Mean Corpuscular Volume 91.9 fL (83.0-100.0); Mean Platelet Volume 9.4 fL (9.4-12.4); Monocytes # 0.3 K/mcL (0.0-1.3); Monocytes % 8.4 %; Neutrophils # 1.9 K/mcL (1.6-8.9); Red Blood Count 3.57 M/mcL (4.19-5.50); Red Cell Distribution Width 16.4 % (11.5-14.5)
[2018-11-01 05:45] LABS: Platelet Count 57 K/mcL (140-400)
[2018-11-01 06:21] LABS: BUN/Creatinine Ratio 37 (6-26); Blood Urea Nitrogen 23 mg/dL (6-20); Calcium 9.1 mg/dL (8.6-10.3); Carbon Dioxide 41 mEq/L (23-29); Chloride 95 mEq/L (98-107); Glucose 138 mg/dL (70-105); Osmolality,Calculated 292 (280-300); Potassium 4.3 mEq/L (3.5-5.1); Sodium 138 mEq/L (136-145); eGFR For Non-African Americans > 60 (> 60)
--- NOTE | 2018-11-01 08:17 | Internal Med Progress Note ---
<Montserrat Mota - Last Filed: 11/01/18 12:47> Hospitalist Progress Note - Encounter Date of Encounter: 11/01/18 - Exam Vitals: Temp Pulse Resp BP Pulse Ox 97.4 F L 70 17 178/83 97 11/01/18 07:40 11/01/18 07:40 11/01/18 07:40 11/01/18 07:40 11/01/18 07:40 - Assessment and Plan (1) Acute respiratory failure with hypoxia and hypercarbia Current Visit: Yes Status: Acute (2) Bradycardia Current Visit: Yes Status: Resolved (3) Pancytopenia Current Visit: Yes Status: Acute (4) CAD (coronary artery disease) Current Visit: No Status: Acute (5) COPD exacerbation Current Visit: No Status: Acute (6) Hypertension Current Visit: No Status: Acute (7) Morbid obesity Current Visit: No Status: Acute (8) Diabetes mellitus Current Visit: No Status: Chronic (9) Hypothyroidism Current Visit: No Status: Chronic (10) Screening for human immunodeficiency virus Current Visit: Yes Status: Acute (11) Cirrhosis of liver Current Visit: Yes Status: Suspected - Time Spent with Patient Total time spent is greater than 50% in coordination of care (as documented) at patient's floor/unit and/or counseling patient: Internal Medicine: Result - Labs CBC & Chem 7: 11/01/18 04:53 11/01/18 04:53 Labs: Short CBC 11/01/18 Range/Units 04:53 WBC 3.6 L (4.3-11.1) K/mcL Hgb 9.7 L (12.9-16.9) g/dL Hct 32.8 L (37.5-50.1) % Plt Count 57 L (140-400) K/mcL Neutrophils # 1.9 (1.6-8.9) K/mcL BMP 11/01/18 04:53 Sodium 138 Potassium 4.3 Chloride 95 L Carbon Dioxide 41 H* BUN 23 H Creatinine 0.63 L Glucose 138 H Calcium 9.1 - ABG Interpretation ABG results: ABG ABG pH 7.32 pH Units (7.32-7.45) 10/28/18 22:04 ABG pCO2 78 mmHg (35-45) H* 10/28/18 22:04 ABG pO2 105 mmHg (85-104) H 10/28/18 22:04 ABG O2 Saturation 97 % (95-98) 10/28/18 22:04 PT/INR, D-dimer PT 12.2 Seconds (9.4-12.1) H 10/28/18 22:02 Consult Discharge Plan - Plan Referrals: NONE,PCP [Primary Care Provider] - - Attending Attestation I examined this patient and my medical decision-making was reviewed with the Resident Physician Dr Smith. I agree with the documented findings, disposition and treatment plan as described except to the extent set forth below. Mr Yin is admitted with acute on chronic resp failure, bradycardia and pancytopenia awake, rn at bedside documented agitated behavior overnight. He is completely awake and oriented and tells a story of needing assistance to get to bed from chair overnight, and not being able to reach call light, and following instruction to be up with assistance, and so he started yelling to get someone's attention, then started throwing things in yin. Regardless, he denies any confusion, any inability to walk unassisted. Will walk with rn for 6 min walk today. discoloration left hand improving and never worsened on right. no fevers, chills, sob, wheezing or palpitations gen- alert, awake,appears stated age, obese cv- reg rate and rhythm, normal s1,s2, no murmurs appreciated lungs- ctabl, no wheezing, rhonchi or crackles, normal resp effort on o2 nc skin- left hand dorsum redness fading, appears tto be petechiae , faint similar discoloration on left hand dorsum unchanged neuro- AAOx3 Acute on Chronic RF with hypoxia and hypercapnia 2/2 COPDE 2/2 Possible Pna and + Influenza -azithro, rocephin, cont steroids x 5 days PO (end 11/02), nebs, home lasix -bipap qual never done as ordered over weekend, RT will do tongiht -6 min walk Bradycardia, sinus, first degree AVB, resolved with holding home BB- avoid AV kaye blocking agents Pancytopenia, uk etiology- -HIV screen positive, confirmatory test sent and still pending,fu heme recs, may require BM bx, hold heparin given suspected petechiae on hands this weekend CAD hx- statin, plavix, asa,losartan; holding coreg HTN- hypotensive in ED, now hypertensive- cont to up titrate arb, will require outpt fu cirrhosis of liver- new finding per pt- CMP only remarkable for low albumin, liver function is otherwise intact, hep panel neg, fuoutpt further diagnoses and plan as noted by resident <Irwin Smith - Last Filed: 11/01/18 16:56> Hospitalist Progress Note - Encounter Date of Encounter: 11/01/18 Time of Encounter: 08:15 - Subjective Interval History: Mr. Yin was admitted for acute and chronic respiratory failure, bradycardia and pancytopenia. Was found to be agitated overnight and was throwing tissue boxes outside the room and be evaluated with the staff for not being cooperative. Patient was also found to voiding onto the floor multiple times . He was agitated because he thought that had not been instructed to check on him. He expressed concern to the RN that he wanted to go home. When I met him he was A&O 3 and in a very pleasant demeanor. He was on 3 L of nasal cannula satting at 97 % with no evidence of any chest discomfort, pain or use of accessory muscles. - Exam Vitals: Temp Pulse Resp BP Pulse Ox 97.4 F L 70 17 178/83 97 11/01/18 07:40 11/01/18 07:40 11/01/18 07:40 11/01/18 07:40 11/01/18 07:40 Exam: Gen.: Vitals noted. No acute distress. Alert, awake and oriented * 3 [address], [address], and time, well developed, well-nourished resting comfortably in bed. Pleasant. HEENT: oropharynx clear, Normocephalic, atraumatic, MMM Neck: supple, no JVD, no lymphadenopathy, no carotid bruit. Cardiac: RRR, no murmur, +S1/S2, No BLE edema, PMI non-displaced Pulmonary: CTA bilaterally, no wheezes, rales or rhonchi, equal chest expansion, unlabored breathing Abdomen: soft, nontender, BS noted, no guarding, non- distended. No organomegaly, no pulsatile masses, Back: no Bilateral flank tenderness, no suprapubic pain Skin: petechaie on the upper extremities on the dorsum of the left hand extending upto the wrist , warm and dr. . Feels warm, clammy, no rashes, no lesions, MSK: ROM not assessed. no joint swelling noted, gait not assessed while in bed. Non tender calf or clubbing, no cyanosis/clubbing/ or edema Neuro: A&O, moves all extremities, no focal deficits, sensation intact Psych: Appropriate mood and behavior, normal speech, no dysarthria. - Assessment and Plan (1) Acute respiratory failure with hypoxia and hypercarbia Current Visit: Yes Status: Acute Assessment and Plan: - Likely multifactorial due to COPD exacerbation along with evidence of influenza A. Highly unlikely units CHF exacerbation because patient's BMP was on 102, with no evidence of S3/JVD on physical exam. Workup was negative for strep/ Legionella/MRSA. -His most recent chest x-ray showed bilateral heterogenous opacities with concerns for mild pulmonary edema, ABG on admission showed evidence for resp iratory acidosis with metabolic compensation. Most recent VBG from yesterday showed that the acidosis had resolved. -Currently is on Rocephin, azithromycin, and prednisone 40 mg by mouth. Also on tamiflu for a total of 5 days -Patient needs to undergo overnight BiPAP qualification. The order was already put in but owing to short of RT staff patient did not undergo the BiPAP qualification yesterday. Patient is also scheduled to get his 6 minute walk test today. (2) COPD exacerbation Current Visit: No Status: Acute Assessment and Plan: -Patient has a history of COPD. however the COPD exacerbation was likely due to influenza virus. -currently undergoing treatment as described above (3) Pancytopenia Current Visit: Yes Status: Acute Assessment and Plan: - Patient Was found to be pancytopenic, not sure if it is acute or chronic in nature. HIV screening also came out to be positive and the confirmatory test has been sent and is pending as of now. Heme/Onc seeing the patient and recommendations were made for bone marrow biopsy. However those recommendations before they knew that patient was HIV positive. Future recommendations are pending. - Has petechia in both hands with more left than right side above the wrist. No evidence of any generalized weakness or fatigue. (4) Diabetes mellitus Current Visit: No Status: Chronic Assessment and Plan: -Patient has a history of diabetes. Home antidiabetic has been held. -Currently on low dose sliding scale insulin. - Recent glucose (138) with the required range 130-180. (5) Hypothyroidism Current Visit: No Status: Chronic Assessment and Plan: -Patient has a history of hypothyroidism -Currently on synthroid (6) Hypertension Current Visit: No Status: Acute Assessment and Plan: - Patient was initially hypotensive in the ED. However currently is hypertensive with systolics 178. - Increased his home dose of losartan from 50 mg to 75 mg. Added hyralazine 10mg 6h PRN (if systolic > 160 ) . Holding off on beta black calvin because of bradycardia and first degree heart block on admission - will continue to monitor and make further adjustments as needed. (7) CAD (coronary artery disease) Current Visit: No Status: Acute Assessment and Plan: History of CAD. However during admission there was no evidence of any ST-T changes or any ischemic events in the EKG. Patient's troponin was normal. -Early patient continues to be in started on Plavix and aspirin. He also continues to be on losartan was dose has been increased from 50-75 mg. However be holding off on his Coreg because of his bradycardia. (8) Morbid obesity Current Visit: No Status: Acute Assessment and Plan: bmi 58.2, lifestyle modifications, pcp fu (9) Bradycardia Current Visit: Yes Status: Resolved Assessment and Plan: -Atenolol was found to be in bradycardia with evidence of first-degree AV block in the ER . Was given atropine. -His most recent HR is 70 , -His exam patient has no dizziness, lightheadedness, fatigue or chest pain. He is A&O*3. -holding off on his home Coreg because of bradycardia (10) Screening for human immunodeficiency virus Current Visit: Yes Status: Acute Assessment and Plan: Positive screen additional testing pending pt aware (11) Cirrhosis of liver Current Visit: Yes Status: Suspected Assessment and Plan: -Patient's liver ultrasound showed nonspecific diffuse a hypoattenuation throughout the liver,with concerns for diffuse hepatic edema. 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 DVT Prophylaxis: scds, holding heparin in context of pancytopenia - Time Spent with Patient Total time spent is greater than 50% in coordination of care (as documented) at patient's floor/unit and/or counseling patient: Internal Medicine: Result - Labs CBC & Chem 7: 11/01/18 04:53 11/01/18 04:53 Labs: Short CBC 11/01/18 Range/Units 04:53 WBC 3.6 L (4.3-11.1) K/mcL Hgb 9.7 L (12.9-16.9) g/dL Hct 32.8 L (37.5-50.1) % Plt Count 57 L (140-400) K/mcL Neutrophils # 1.9 (1.6-8.9) K/mcL BMP 11/01/18 04:53 Sodium 138 Potassium 4.3 Chloride 95 L Carbon Dioxide 41 H* BUN 23 H Creatinine 0.63 L Glucose 138 H Calcium 9.1 - ABG Interpretation ABG results: ABG ABG pH 7.32 pH Units (7.32-7.45) 10/28/18 22:04 ABG pCO2 78 mmHg (35-45) H* 10/28/18 22:04 ABG pO2 105 mmHg (85-104) H 10/28/18 22:04 ABG O2 Saturation 97 % (95-98) 10/28/18 22:04 PT/INR, D-dimer PT 12.2 Seconds (9.4-12.1) H 10/28/18 22:02 <Montserrat Mota - Last Filed: 11/01/18 12:47> (4) CAD (coronary artery disease) Qualifiers: Coronary Disease-Associated Artery/Lesion type: habematolel artery [place] vs. transplanted heart: habematolel heart Associated angina: without angina Qualified Code(s): I25.10 - Atherosclerotic heart disease of habematolel coronary artery without angina pectoris (6) Hypertension Qualifiers: Hypertension type: essential hypertension Qualified Code(s): I10 - Essential (primary) hypertension (8) Diabetes mellitus Qualifiers: Diabetes mellitus type: type 2 Diabetes mellitus senior living insulin use: without senior living use Diabetes mellitus complication status: with unspecified complications Qualified Code(s): E11.8 - Type 2 diabetes mellitus with unspecified complications (9) Hypothyroidism Qualifiers: Hypothyroidism type: acquired Qualified Code(s): E03.9 - Hypothyroidism, unspecified (11) Cirrhosis of liver Qualifiers: Ascites presence: unspecified <Irwin Smith - Last Filed: 11/01/18 16:56> (4) Diabetes mellitus Qualifiers: Diabetes mellitus type: type 2 Diabetes mellitus senior living insulin use: without 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 transplanted heart: habematolel heart Associated angina: without angina Qualified Code(s): I25.10 - Atherosclerotic heart disease of habematolel coronary artery without angina pectoris (11) Cirrhosis of liver Qualifiers: Ascites presence: unspecified
[2018-11-01] MEDS: Azithromycin 250 MG TABLET PO SCH (09:30)
[2018-11-01] MEDS: Aspirin Enteric Coated 81 MG Tablet PO SCH (09:30)
[2018-11-01] MEDS: Furosemide 40 MG TABLET PO SCH ×2 (09:30→17:29)
[2018-11-01] MEDS: Insulin LISPRO 300 UNITS/3 ML VIAL SQ SCH ×4 (09:32→22:24)
[2018-11-01] MEDS: cefTRIAXone 1,000 MG in Water for inj. (sterile) 20 ML 10 ML IVP SCH (09:33)
[2018-11-01] MEDS ORDERED: hydrALAZINE 10 MG TABLET PO PRN ×2 (15:45→15:46)
[2018-11-02] MEDS: Ipratropium/Albuterol Neb 3 ML IH SCH ×4 (04:01→22:22)
[2018-11-02 04:48] LABS: Mean Corpuscular Hemoglobin 27.6 pg (28.0-33.3)
[2018-11-02 04:50] LABS: Basophils # 0.1 K/mcL (0.0-0.2); Basophils % 1.4 %; Eosinophils # 0.2 K/mcL (0.0-0.6); Eosinophils % 5.5 %; Hematocrit 28.7 % (37.5-50.1); Hemoglobin 8.8 g/dL (12.9-16.9); Immature Granulocytes % 3.6 % (0-4); Immature Platelets 2.1 % (1.1-6.1); Lymphocytes # 0.8 K/mcL (0.6-4.6); Lymphocytes % 22.4 %; Mean Corpuscular HGB Conc 30.7 g/dL (31.6-35.5); Mean Platelet Volume 9.6 fL (9.4-12.4); Monocytes # 0.3 K/mcL (0.0-1.3); Monocytes % 7.5 %; Neutrophils # 2.2 K/mcL (1.6-8.9); Red Blood Count 3.19 M/mcL (4.19-5.50); Red Cell Distribution Width 16.4 % (11.5-14.5); Segmented Neutrophils % 59.6 %
[2018-11-02 05:00] LABS: Platelet Count 65 K/mcL (140-400)
[2018-11-02 05:14] LABS: BUN/Creatinine Ratio 37 (6-26); Blood Urea Nitrogen 23 mg/dL (6-20); Calcium 9.1 mg/dL (8.6-10.3); Carbon Dioxide 45 mEq/L (23-29); Chloride 92 mEq/L (98-107); Glucose 206 mg/dL (70-105); Osmolality,Calculated 298 (280-300); Potassium 4.5 mEq/L (3.5-5.1); Sodium 139 mEq/L (136-145); eGFR For Non-African Americans > 60 (> 60)
--- NOTE | 2018-11-02 08:05 | Internal Med Progress Note ---
<Montserrat Mota - Last Filed: 11/02/18 16:52> Hospitalist Progress Note - Encounter Date of Encounter: 11/02/18 - Exam Vitals: Temp Pulse Resp BP Pulse Ox 98 F 75 16 172/89 96 11/02/18 16:20 11/02/18 16:20 11/02/18 16:20 11/02/18 16:20 11/02/18 16:20 - Assessment and Plan (1) Diabetes mellitus Current Visit: No Status: Chronic (2) COPD exacerbation Current Visit: No Status: Acute (3) Hypothyroidism Current Visit: No Status: Chronic (4) Hypertension Current Visit: No Status: Acute (5) CAD (coronary artery disease) Current Visit: No Status: Acute (6) Morbid obesity Current Visit: No Status: Acute (7) Acute respiratory failure with hypoxia and hypercarbia Current Visit: Yes Status: Acute (8) Bradycardia Current Visit: Yes Status: Resolved (9) Pancytopenia Current Visit: Yes Status: Acute (10) Screening for human immunodeficiency virus Current Visit: Yes Status: Acute (11) Cirrhosis of liver Current Visit: Yes Status: Suspected - Time Spent with Patient Total time spent is greater than 50% in coordination of care (as documented) at patient's floor/unit and/or counseling patient: Internal Medicine: Result - Labs CBC & Chem 7: 11/02/18 04:35 11/02/18 04:35 Labs: Short CBC 11/02/18 Range/Units 04:35 WBC 3.6 L (4.3-11.1) K/mcL Hgb 8.8 L (12.9-16.9) g/dL Hct 28.7 L (37.5-50.1) % Plt Count 65 L (140-400) K/mcL Neutrophils # 2.2 (1.6-8.9) K/mcL BMP 11/02/18 04:35 Sodium 139 Potassium 4.5 Chloride 92 L Carbon Dioxide 45 H* BUN 23 H Creatinine 0.62 L Glucose 206 H Calcium 9.1 - ABG Interpretation ABG results: ABG ABG pH 7.32 pH Units (7.32-7.45) 10/28/18 22:04 ABG pCO2 78 mmHg (35-45) H* 10/28/18 22:04 ABG pO2 105 mmHg (85-104) H 10/28/18 22:04 ABG O2 Saturation 97 % (95-98) 10/28/18 22:04 PT/INR, D-dimer PT 12.2 Seconds (9.4-12.1) H 10/28/18 22:02 Consult Discharge Plan - Plan Referrals: NONE,PCP [Primary Care Provider] - - Attending Attestation I examined this patient and my medical decision-making was reviewed with the Resident Physician Dr Smith. I agree with the documented findings, disposition and treatment plan as described except to the extent set forth below. Mr Burr is admitted with acute on chronic resp failure, bradycardia and pancytopenia awake, rn at bedside rash on hands near resolved, no bleeding, cp, pressure or plpiations. BP high, no assoicated ocampo or vision changes. really eager for dc. Aware bp needs better controlled prior to dc He did NOT wear bipap overnight and suspect this is why he has hard to control bp and rising carbon dioxide this morning. Mental status remains baseline. gen- alert, awake,appears stated age, obese cv- reg rate and rhythm, normal s1,s2, no murmurs appreciated, no le edema lungs- ctabl, no wheezing, rhonchi or crackles, normal resp effort on o2 nc neuro- AAOx3 Acute on Chronic RF with hypoxia and hypercapnia 2/2 COPDE 2/2 Possible Pna and + Influenza -azithro, rocephin complete, cont steroids x 5 days PO (end 11/02), nebs, home lasix -bipap qual complete, home o2 rx complete Bradycardia, sinus, first degree AVB, resolved with holding home BB- avoid AV kaye blocking agents Pancytopenia, uk etiology- -HIV screen positive, abs neg,fu heme recs, may require BM bx outpt, hold heparin given suspected petechiae on hands this weekend CAD hx- statin, plavix, asa,losartan; holding coreg HTN- hypotensive in ED, now hypertensive and very difficult to control- cont to up titrate arb, added hctz, needs to wear bipap at night, will require outpt fu cirrhosis of liver- new finding per pt- CMP only remarkable for low albumin, liver function is otherwise intact, hep panel neg, fuoutpt further diagnoses and plan as noted by resident <Irwin Smith - Last Filed: 11/02/18 18:37> Hospitalist Progress Note - Encounter Date of Encounter: 11/02/18 Time of Encounter: 09:30 - Subjective Interval History: No acute events overnight. Patient blood pressure has been high despite being on now 100 mg losartan. Of note 12.5 mg hydrochlorothiazide did not help with blood pressure control and the most recent blood pressure as of 4 PM today was 180 systolic. Patient has been educated about using BiPAP overnight to help with the blood pressure control and tomorrow morning he is going to be on dual antihypertensive therapy which would be losartan 100 mg plus HCTZ 25 mg . - Exam Vitals: Temp Pulse Resp BP Pulse Ox 98 F 66 18 174/85 98 11/02/18 04:00 11/02/18 04:00 11/02/18 04:00 11/02/18 04:00 11/02/18 05:24 Exam: Gen.: Vitals noted. No acute distress. Alert, awake and oriented * [address], place, and time, well developed, well-nourished resting comfortably in bed. Pleasant. HEENT: oropharynx clear, Normocephalic, atraumatic, MMM Neck: supple, no JVD, no lymphadenopathy, no carotid bruit. Cardiac: RRR, no murmur, +S1/S2, No BLE edema, PMI non-displaced Pulmonary: CTA bilaterally, no wheezes, rales or rhonchi, equal chest expansion, unlabored breathing Abdomen: soft, nontender, BS noted, no guarding, non- distended. No organomegaly, no pulsatile masses, Back: no Bilateral flank tenderness, no suprapubic pain Skin: petechaie on the upper extremities on the dorsum of the left hand extending upto the wrist , warm and dr. . Feels warm, clammy, no rashes, no lesions, MSK: ROM not assessed. no joint swelling noted, gait not assessed while in bed. Non tender calf or clubbing, no cyanosis/clubbing/ or edema Neuro: A&O, moves all extremities, no focal deficits, sensation intact Psych: Appropriate mood and behavior, normal speech. - Assessment and Plan (1) Acute respiratory failure with hypoxia and hypercarbia Current Visit: Yes Status: Acute Assessment and Plan: - Likely multifactorial due to COPD exacerbation along with evidence of influenza A. -Workup was negative for strep/ Legionella/MRSA. -Highly unlikely this is CHF exacerbation because patient's BMP was on 102, with no evidence of S3/JVD on physical exam. -Most recent chest x-ray showed bilateral heterogenous opacities , ABG on admission showed evidence for respiratory acidosis with metabolic compensation. - Most recent VBG from yesterday showed that the acidosis had resolved -Currently on day 4/5 of Rocephin, azithromycin, and prednisone 40 mg by mouth. - day 3/5 of tamiflu. - currently spO2: 96% at 2L NC Plan: - change from IV rocephin to 1 dose of Omnicef to cover for suspected pneumonia because patient lost his IV access. - Patient qualified for home BiPAP. Reinforce using BiPAP a night to help with hypoxia and BP control (2) COPD exacerbation Current Visit: No Status: Acute Assessment and Plan: -as described above (3) Diabetes mellitus Current Visit: No Status: Chronic Assessment and Plan: -Patient has a history of diabetes. Home antidiabetic has been held. -Currently on low dose sliding scale insulin. - Recent glucose 206. (4) Hypothyroidism Current Visit: No Status: Chronic Assessment and Plan: -Patient has a history of hypothyroidism -Currently on synthroid (5) Hypertension Current Visit: No Status: Acute Assessment and Plan: - Patient was initially hypotensive in the ED. However currently is hypertensive with systolics 172. - Increased his home dose of losartan from 75 mg to 100 mg. Added HCTZ 12.5 PO - Holding off on beta black calvin because of bradycardia and first degree heart block on admission - Repeat blood pressure after 12.5 mg HCTZ was 180 systolic. Plan: - increase HCTZ from 12.5 to 25. give dual anti HTNive in the AM - [place] 100mg + HCTZ 25 mg - Reinforce using BiPAP at night to help with the blood pressure control. - make further adjustments as needed. (6) CAD (coronary artery disease) Current Visit: No Status: Acute Assessment and Plan: -History of CAD. However during admission there was no evidence of any ST-T changes or any ischemic events in the EKG. Patient's troponin was normal. -Early patient continues to be in started on Plavix and aspirin. Currently on 100 mg losartan holding off on his Coreg because of his bradycardia. (7) Morbid obesity Current Visit: No Status: Acute Assessment and Plan: bmi 58.2, lifestyle modifications, pcp fu (8) Bradycardia Current Visit: Yes Status: Resolved Assessment and Plan: -Patient was found to be in bradycardia with evidence of first-degree AV block in the ER . Was given atropine. -His most recent HR is 70 , -His exam patient has no dizziness, lightheadedness, fatigue or chest pain. He is A&O*3. 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 - HIV screen was initially positive but HIV antibody test was negative. Influenza A positive. -Viral hepatitis screen was negative -Ferritin, B12, folate, TSh normal. - Has petechia in both hands with more left than right side above the wrist. No evidence of any generalized weakness or fatigue. Plan: - follow up with Heme/Onc as an outpatient for a potential bone marrow biopsy - (10) Screening for human immunodeficiency virus Current Visit: Yes Status: Acute Assessment and Plan: Positive screen, HIV Ab negative pt aware (11) Cirrhosis of liver Current Visit: Yes Status: Suspected Assessment and Plan: -Patient's liver ultrasound showed nonspecific diffuse a hypoattenuation throughout the liver,with concerns for diffuse hepatic edema. Findings also s howed lobular hepatic contours suggestive of sequelae from cirrhosis -CMP was pretty unremarkable, hepatic panel was negative., Normal INR -Follow up as an outpatient with clod puller DVT Prophylaxis: scds, holding heparin in context of pancytopenia - Time Spent with Patient Total time spent is greater than 50% in coordination of care (as documented) at patient's floor/unit and/or counseling patient: Internal Medicine: Result - Labs CBC & Chem 7: 11/02/18 04:35 11/02/18 04:35 Labs: Short CBC 11/02/18 Range/Units 04:35 WBC 3.6 L (4.3-11.1) K/mcL Hgb 8.8 L (12.9-16.9) g/dL Hct 28.7 L (37.5-50.1) % Plt Count 65 L (140-400) K/mcL Neutrophils # 2.2 (1.6-8.9) K/mcL BMP 11/02/18 04:35 Sodium 139 Potassium 4.5 Chloride 92 L Carbon Dioxide 45 H* BUN 23 H Creatinine 0.62 L Glucose 206 H Calcium 9.1 - ABG Interpretation ABG results: ABG ABG pH 7.32 pH Units (7.32-7.45) 10/28/18 22:04 ABG pCO2 78 mmHg (35-45) H* 10/28/18 22:04 ABG pO2 105 mmHg (85-104) H 10/28/18 22:04 ABG O2 Saturation 97 % (95-98) 10/28/18 22:04 PT/INR, D-dimer PT 12.2 Seconds (9.4-12.1) H 10/28/18 22:02 <Montserrat Mota - Last Filed: 11/02/18 16:52> (1) Diabetes mellitus Qualifiers: Diabetes mellitus type: type 2 Diabetes mellitus ocean transportation intermediary insulin use: without ocean transportation intermediary use Diabetes mellitus complication status: with unspecified complications Qualified Code(s): E11.8 - Type 2 diabetes mellitus with unspecified complications (3) Hypothyroidism Qualifiers: Hypothyroidism type: acquired Qualified Code(s): E03.9 - Hypothyroidism, unspecified (4) Hypertension Qualifiers: Hypertension type: essential hypertension Qualified Code(s): I10 - Essential (primary) hypertension (5) CAD (coronary artery disease) Qualifiers: Coronary Disease-Associated Artery/Lesion type: [place] artery [place] vs. transplanted heart: [place] heart Associated angina: without angina Qualified Code(s): I25.10 - Atherosclerotic heart disease of [place] coronary artery without angina pectoris (11) Cirrhosis of liver Qualifiers: Ascites presence: unspecified <Irwin Smith - Last Filed: 11/02/18 18:37> (3) Diabetes mellitus Qualifiers: Diabetes mellitus type: type 2 Diabetes mellitus care home insulin use: without ocean transportation intermediary use Diabetes mellitus complication status: with unspecified complications Qualified Code(s): E11.8 - Type 2 diabetes mellitus with unspecified complications (4) Hypothyroidism Qualifiers: Hypothyroidism type: acquired Qualified Code(s): E03.9 - Hypothyroidism, unspecified (5) Hypertension Qualifiers: Hypertension type: essential hypertension Qualified Code(s): I10 - Essential (primary) hypertension (6) CAD (coronary artery disease) Qualifiers: Coronary Disease-Associated Artery/Lesion type: [place] artery [place] vs. transplanted heart: [place] heart Associated angina: without angina Qualified Code(s): I25.10 - Atherosclerotic heart disease of [place] coronary artery wi thout angina pectoris (11) Cirrhosis of liver Qualifiers: Ascites presence: unspecified
[2018-11-02] MEDS: Insulin LISPRO 300 UNITS/3 ML VIAL SQ SCH ×4 (08:22→22:35)
[2018-11-02] MEDS: Azithromycin 250 MG TABLET PO SCH (09:21)
[2018-11-02] MEDS: predniSONE 20 MG TABLET PO SCH (09:21)
[2018-11-02] MEDS: Furosemide 40 MG TABLET PO SCH ×2 (09:21→17:40)
[2018-11-02] MEDS: FLUoxetine 20 MG CAPSULE PO SCH (09:21)
[2018-11-02] MEDS: rOPINIRole 1 MG TABLET PO SCH ×3 (09:22→22:31)
[2018-11-02] MEDS: Aspirin Enteric Coated 81 MG Tablet PO SCH (09:24)
[2018-11-02] MEDS: cefTRIAXone 1,000 MG in Water for inj. (sterile) 20 ML 10 ML IVP SCH (09:40)
[2018-11-02] MEDS ORDERED: Cefdinir 300 MG CAPSULE PO ONE (11:33)
--- NOTE | 2018-11-02 12:40 | Oncology Inp Progress Note ---
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 Viral etiology/inflenza A positive US imaging reviewed. Consider CT abd, GI evaluation for cirrhosis/fatty liver Vital hepatitis screen was negative, HIV antibodies negative. Influenza A on tamiflu Ferritin, B12, folate, TSh normal. Plan reviewed with patient 11/01/18 bedside Oncology: Subj Interval history: Patient denies any specific complaints. Lower extremity swelling. Denies any cough or shortness of breath. - Constitutional General appearance: morbidly obese - Eye Eye exam: Present: sclera anicteric - ENT ENT exam: Present: mucous membranes moist - Respiratory Respiratory exam: Present: CTAB - Cardiovascular Cardiovascular exam: Present: +S1, +S2 - GI/Abdominal GI/Abdominal exam: Present: normal bowel sounds, soft - Extremities Exam Extremities exam: Present: pedal edema Additional comments: skin changes - Neurological Exam Neurological exam: Present: alert, CN II-XII intact, oriented X3 - Psychiatric Psychiatric exam: Present: normal mood Oncology: Obj Data - Labs CBC & Chem 7: 11/02/18 04:35 11/02/18 04:35 Consult Discharge Plan - Plan Referrals: NONE,PCP [Primary Care Provider] - Inpatient Charges Provider: Dr. Gabrielle Pagan Follow up - Inpatient: [id number]
[2018-11-02] MEDS ORDERED: amLODIPine 5 MG TABLET PO SCH (14:15)
[2018-11-02] MEDS ORDERED: hydroCHLOROthiazide 25 MG TABLET PO SCH (14:15)
[2018-11-03] MEDS: Ipratropium/Albuterol Neb 3 ML IH SCH ×3 (04:00→15:27)
[2018-11-03] MEDS ORDERED: hydrALAZINE 10 MG TABLET PO ONE (06:23)
[2018-11-03 07:40] LABS: Mean Platelet Volume 9.6 fL (9.4-12.4); Nucleated Red Blood Cells 0.7 /100 WBC (0)
[2018-11-03 07:42] LABS: Basophils % 0.9 %; Eosinophils # 0.4 K/mcL (0.0-0.6); Eosinophils % 9.3 %; Hematocrit 30.7 % (37.5-50.1); Hemoglobin 9.4 g/dL (12.9-16.9); Immature Granulocytes % 4.6 % (0-4); Lymphocytes # 1.1 K/mcL (0.6-4.6); Lymphocytes % 23.9 %; Mean Corpuscular HGB Conc 30.6 g/dL (31.6-35.5); Mean Corpuscular Hemoglobin 27.2 pg (28.0-33.3); Monocytes # 0.4 K/mcL (0.0-1.3); Red Blood Count 3.45 M/mcL (4.19-5.50); Red Cell Distribution Width 16.7 % (11.5-14.5); Segmented Neutrophils % 53.3 %
[2018-11-03 07:46] LABS: Neutrophils # 2.4 K/mcL (1.6-8.9); Platelet Count 70 K/mcL (140-400)
[2018-11-03] MEDS ORDERED: hydroCHLOROthiazide 25 MG TABLET PO SCH (09:00)
[2018-11-03] MEDS: Furosemide 40 MG TABLET PO SCH (09:52)
[2018-11-03] MEDS: Insulin LISPRO 300 UNITS/3 ML VIAL SQ SCH ×2 (09:52→12:12)
[2018-11-03] MEDS: Azithromycin 250 MG TABLET PO SCH (09:53)
[2018-11-03] MEDS: Aspirin Enteric Coated 81 MG Tablet PO SCH (09:53)
[2018-11-03] MEDS: predniSONE 20 MG TABLET PO SCH (09:53)
[2018-11-03] MEDS: rOPINIRole 1 MG TABLET PO SCH (09:53)
[2018-11-03] MEDS: FLUoxetine 20 MG CAPSULE PO SCH (09:53)
[2018-11-03] MEDS: cefTRIAXone 1,000 MG in Water for inj. (sterile) 20 ML 10 ML IVP SCH (09:54)
--- NOTE | 2018-11-03 12:50 | Discharge Summary ---
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: without fdc use Diabetes mellitus complication status: without complication Qualified Code(s): E11.9 - Type 2 diabetes mellitus without complications (2) COPD exacerbation Priority: Secondary Status: Acute (3) Hypothyroidism Priority: Secondary Status: Chronic Qualifiers: Hypothyroidism type: acquired Qualified Code(s): E03.9 - Hypothyroidism, unspecified (4) Hypertension Priority: Secondary Status: Chronic Qualifiers: Hypertension type: essential hypertension Qualified Code(s): I10 - Essential (primary) hypertension (5) CAD (coronary artery disease) Priority: Secondary Status: Chronic Qualifiers: Coronary Disease-Associated Artery/Lesion type: [place] artery [place] vs. transplanted heart: ho-chunk heart Associated angina: without angina Qualified Code(s): I25.10 - Atherosclerotic heart disease of [place] coronary artery without angina pectoris (6) Morbid obesity Priority: Secondary Status: Chronic (7) Acute respiratory failure with hypoxia and hypercarbia Priority: Primary Status: Acute (8) Bradycardia Priority: Secondary Status: Resolved (9) Pancytopenia Priority: Secondary Status: Acute (10) Screening for human immunodeficiency virus Priority: Secondary Status: Acute (11) Cirrhosis of liver Priority: Secondary Status: Suspected Qualifiers: Hepatic cirrhosis type: unspecified hepatic cirrhosis Ascites presence: without ascites Qualified Code(s): K74.60 - Unspecified cirrhosis of liver Hospital course: Mr. Burr is a 57 year old male - Time Spent with Patient Total time spent providing and/or coordinating discharge services: 38min - Discharge Medications Prescriptions: New Oseltamivir [Tamiflu] 75 mg PO BID 1 Days #2 capsule hydroCHLOROthiazide [Hydrochlorothiazide] 12.5 mg PO DAILY #10 tablet Continue Levothyroxine [Synthroid] 88 mcg PO DAILY Ropinirole HCl [Requip] 4 mg PO TID FLUoxetine HCl [Prozac] 40 mg PO DAILY Atorvastatin Calcium [Lipitor] 80 mg PO HS Pioglitazone HCl 45 mg PO DAILY Nitroglycerin [Nitrostat] 0.4 mg SL AD PRN PRN Reason: Chest Pain glipiZIDE [Glipizide] 10 mg PO DAILY Clopidogrel [Plavix] 75 mg PO DAILY Albuterol Sulfate [Ventolin Hfa] 2 puff IH Q6H PRN PRN Reason: Shortness Of Breath Aspirin Enteric Coated [Aspirin EC] 81 mg PO DAILY 30 Days #30 tablet. Furosemide [Lasix] 40 mg PO BIDDIURETIC 30 Days #60 tablet Potassium Chloride 20 meq PO DAILY Losartan Potassium 100 mg PO DAILY #10 Discontinued Losartan Potassium 50 mg PO DAILY Carvedilol 3.125 mg PO BID Home Medications: FLUoxetine HCl [Prozac] 40 mg PO DAILY 05/25/16 [History] Levothyroxine [Synthroid] 88 mcg PO DAILY 05/25/16 [History] Ropinirole HCl [Requip] 4 mg PO TID 05/25/16 [History] Albuterol Sulfate [Ventolin Hfa] 2 puff IH Q6H PRN 10/08/18 [History] Atorvastatin Calcium [Lipitor] 80 mg PO HS 10/08/18 [History] Clopidogrel [Plavix] 75 mg PO DAILY 10/08/18 [History] Nitroglycerin [Nitrostat] 0.4 mg SL AD PRN 10/08/18 [History] Pioglitazone HCl 45 mg PO DAILY 10/08/18 [History] glipiZIDE [Glipizide] 10 mg PO DAILY 10/08/18 [History] Aspirin Enteric Coated [Aspirin EC] 81 mg PO DAILY 30 Days #30 tablet. 10/10/18 [Rx] Furosemide [Lasix] 40 mg PO BIDDIURETIC 30 Days #60 tablet 10/10/18 [Rx] Potassium Chloride 20 meq PO DAILY 10/29/18 [History] Losartan Potassium 100 mg PO DAILY #10 11/03/18 [Rx] Oseltamivir [Tamiflu] 75 mg PO BID 1 Days #2 capsule 11/03/18 [Rx] hydroCHLOROthiazide [Hydrochlorothiazide] 12.5 mg PO DAILY #10 tablet 11/03/18 [ Rx] Allergies/Adverse Reactions: Allergy/AdvReac Type Severity Reaction Status Date / Time lidocaine Allergy See Verified 10/29/18 17:45 [From Terramycin (with Comments lidocaine)] oxytetracycline Allergy See Verified 10/29/18 17:45 [From Terramycin (with Comments lidocaine)] Penicillins Allergy See Verified 10/29/18 17:45 Comments Sulfa (Sulfonamide Allergy See Verified 10/29/18 17:45 Antibiotics) Comments Date of admission: 10/29/18 06:51 Primary care physician: PCP NONE Consults: 10/29/18 05:02 Consult to Oncology [CONS] Routine Consulting Provider: [facility] Reason for Consult: pancytopenia Call Completed: No 10/29/18 17:14 Consult to Nurse Navigator [CONS] Routine Comment: COPD and CHf - Constitutional Vitals: Temp Pulse Resp BP Pulse Ox 97.6 F 72 17 140/60 94 11/03/18 04:00 11/03/18 11:57 11/03/18 11:57 11/03/18 11:57 11/03/18 10:31 - Patient Status Disposition: Home, Self-Care Condition: Fair - Discharge Instructions Instructions: Hydrochlorothiazide (By mouth), Oseltamivir (By mouth), Heart Failure (DC), Acute Respiratory Distress Syndrome (DC), Diabetes Mellitus Type 2 in Adults (DC), Chronic Obstructive Pulmonary Disease (DC), Chronic Hypertension (DC), Cigarette Smoking and Your Health, Digital Business Analyst (GEN) Follow Up With: Cate Pagan MD [Partnered Physician] - 11/15/18 1:00 pm Saud Vaca DO [Non-Partnered Physician] - 11/10/18 11:00 am Additional Instructions: - 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 -Follow up with PCP Dr. Saud Vaca - Do not take the Coreg until seen by PCP. - Attending Attestation I examined this patient and my medical decision-making was reviewed with the Resident Physician on 11/03/18. I agree with the documented findings, disposition and treatment plan as described except to the extent set forth below. Mr Burr has been admitted for bradycardia and hypoxia. Coreg was stopped. He was found to be in acute on chronic respiratory failure. He also had pancytopenia and presumed cirrhosis. He was evaluated by heme onc and resp failure was treated with improvement. His HIV screen was positive but recheck Ab negative. Today he is afebrile and at baseline. He is ready for discharge home. Exam alert Comfortable Mucus membranes dry Heart reg and distant Lungs diminished but clear ABd soft Moves all extremities Plan D/C home today. Follow up with hemeonc for pancytopenia. Meds adjusted for hypertension Follow up with PCP. <Inessa Smithbh - Last Filed: 11/03/18 16:42> - NOTES TO OUTPATIENT PROVIDER Notes to Outpatient Provider: - Discontinued patient's Coreg because he had a first degree heart block on admission. - Needs to f/u with heme/onc for further workup of his pancytopenia. - Needs to repeat his HIV Antibody test. - he was on day 4/5 of Tamiflu when he was discharged. He is being send with a days worth of Tamiflu. - increased his losaratan from 50 to 100 mg. 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 transplanted heart: [place] heart Associated angina: without angina Qualified Code(s): I25.10 - Atherosclerotic heart disease of [place] coronary artery with out angina pectoris (7) Morbid obesity Status: Chronic (8) Bradycardia Status: Resolved (9) Pancytopenia Status: Acute (10) Screening for human immunodeficiency virus Status: Acute (11) Cirrhosis of liver Status: Suspected Qualifiers: Hepatic cirrhosis type: unspecified hepatic cirrhosis Ascites presence: without ascites Qualified Code(s): K74.60 - Unspecified cirrhosis of liver Hospital course: Mr. Burr is a 57 year old male with a PMHx pf copd cad s/p pci DM YENNY, obesity, cpap HS, CHF w echo 09/2018 EF 55-60%, indeterminant diastolic dysfunction presented to the ED because of hypoxia and bradycardia. Patient's home oxygen O2 sats was 70 on room air and heart rate was 60. Patient was given atropine *1 in the ED, ekg was without ischemic changes. He also had developed acute and chronic respiratory failure with hypercapnia with evidence of pneumonia and edema on chest x-ray, also was tested positive for influenza A. Patient was admitted to the hospital for further management. While in the hospital patient was put on Tamiflu, also completed course of azithromycin and rocephin with concerns for pneumonia. Patient was also found to be pancytopenic , was seen by hematology oncology recommended outpatient follow-up for potential bone marrow biopsy. He was tested for HIV, the screening test which was positive but the confirmatory test was negative. Patient qualified for home BiPAP . we discontinued his Coreg because of concerns for First degree heart block. Patient's blood pressure was difficult to control (patient was taking losartan 25 mg at home). We bumped his losartan from his home dose to 50 mg which did not help with blood pressure control. We eventually increase his losartan to 100 mg and added hydrochlorothiazide 12.5 mg which helped decrease his blood pressure systolics 170-180 to 140s. Patient is being discharged on 10 day course of losartan 100 mg along with the HCTZ 12.5 mg to help his blood pressure control. He is on day 4 of 5 of Tamiflu and needs 1 more day medications. - Time Spent with Patient Total time spent providing and/or coordinating discharge services: Date of admission: 10/29/18 06:51 Primary care physician: PCP NONE Consults: 10/29/18 05:02 Consult to Oncology [CONS] Routine Consulting Provider: [facility] Reason for Consult: pancytopenia Call Completed: No 10/29/18 17:14 Consult to Nurse Navigator [CONS] Routine Comment: COPD and CHf - Constitutional Vitals: Temp Pulse Resp BP Pulse Ox 97.6 F 72 17 140/60 94 11/03/18 04:00 11/03/18 11:57 11/03/18 11:57 11/03/18 11:57 11/03/18 10:31 General appearance: Present: A&O X 3, no acute distress, answers questions appropriately Exam: Gen.: Vitals noted. No acute distress. Alert, awake and oriented * [address], place, and time, well developed, well-nourished resting comfortably in bed. Pleasant. HEENT: oropharynx clear, Normocephalic, atraumatic, MMM Neck: supple, no JVD, no lymphadenopathy, no carotid bruit. Cardiac: RRR, no murmur, +S1/S2, No BLE edema, PMI non-displaced Pulmonary: CTA bilaterally, no wheezes, rales or rhonchi, equal chest expansion, unlabored breathing Abdomen: soft, nontender, BS noted, no guarding, non- distended. No organomegaly, no pulsatile masses, Back: no Bilateral flank tenderness, no suprapubic pain Skin: petechaie on the upper extremities on the dorsum of the left hand extending upto the wrist , warm and dr. . Feels warm, clammy, no rashes, no lesions, MSK: ROM not assessed. no joint swelling noted, gait not assessed while in bed. Non tender calf or clubbing, no cyanosis/clubbing/ or edema Neuro: A&O, moves all extremities, no focal deficits, sensation intact Psych: Appropriate mood and behavior, normal speech. - Patient Status Overall status at discharge: patient is progressing back to baseline - Diet and Activity Activity: resume usual activities as tolerated Diet: low salt diet
[2018-11-04 15:21] VITALS: BP 140/60
== END 2018-11-03 16:17 | disposition home or self-care (01) | DRG 189 ==
LOC: EMEROOARM 21:35 → 2NENU 21:35 → SUATTDRO 10-29 06:51
PROVIDERS: ADMIT Pediatrics; ATTEND Internal Medicine

== ENCOUNTER 2019-07-11 12:30 | Observation (INO) ==
[~2019-07-11 12:30] MED LIST: Aminoglycoside Consult 1 EACH MC ONE
[2019-07-11] MEDS ORDERED: *HR* OxyCODONE/APAP 5/325 TABLET PO ONE (13:52)
[2019-07-11 14:05] LABS: Immature Granulocytes % 0.3 % (0-4)
[2019-07-11 14:07] LABS: Basophils % 0.8 %; Eosinophils # 0.2 K/mcL (0.0-0.6); Eosinophils % 6.6 %; Hematocrit 32.2 % (37.5-50.1); Hemoglobin 10.6 g/dL (12.9-16.9); Immature Platelets 1.9 % (1.1-6.1); Lymphocytes # 1.1 K/mcL (0.6-4.6); Mean Corpuscular HGB Conc 32.9 g/dL (31.6-35.5); Mean Corpuscular Hemoglobin 29.8 pg (28.0-33.3); Mean Corpuscular Volume 90.4 fL (83.0-100.0); Mean Platelet Volume 9.7 fL (9.4-12.4); Monocytes # 0.3 K/mcL (0.0-1.3); Monocytes % 7.7 %; Red Blood Count 3.56 M/mcL (4.19-5.50); Red Cell Distribution Width 16.4 % (11.5-14.5); Segmented Neutrophils % 54.6 %; White Blood Count 3.6 K/mcL (4.3-11.1)
[2019-07-11 14:14] LABS: Platelet Count 78 K/mcL (140-400)
[2019-07-11 14:21] LABS: BUN/Creatinine Ratio 29 (6-26); Blood Urea Nitrogen 42 mg/dL (6-20); C-Reactive Protein 11 mg/L (Less than 10); Carbon Dioxide 33 mEq/L (23-29); Chloride 99 mEq/L (98-107); Glucose 59 mg/dL (70-105); Osmolality,Calculated 294 (280-300); Potassium 4.3 mEq/L (3.5-5.1); Sodium 138 mEq/L (136-145); eGFR For African Americans 60 (> 60); eGFR For Non-African Americans 49 (> 60)
[2019-07-11 14:32] LABS: Troponin I < 0.03 ng/mL (< 0.04)
[2019-07-11] MEDS ORDERED: Clindamycin 600 MG/50 ML 600 MG/50 ML IV.SOLN IVPB ONE (15:26)
[2019-07-11] MEDS ORDERED: *HR* HYDROcodone/Acet 5/325 mg TABLET PO PRN (16:28)
[2019-07-11] MEDS ORDERED: Naloxone 0.4 MG/ML INJ IVP PRN (16:28)
[2019-07-11] MEDS ORDERED: Ondansetron 4 MG/2 ML VIAL IVP PRN (16:28)
[2019-07-11] MEDS ORDERED: Dextrose Gel 15 GM/37.5 ML TUBE PO PRN ×2 (16:32)
[2019-07-11] MEDS ORDERED: *HR* Dextrose 50 % in Water (Syg) 50 ML SYRINGE IVP PRN (16:32)
[2019-07-11] MEDS ORDERED: D5% in Water 1,000 ML IVC PRN (16:32)
[2019-07-11] MEDS ORDERED: Albuterol 2.5 MG/3 ML NEBULIZER IH PRN (17:17)
[2019-07-11] MEDS: levoFLOXacin 750 MG/150 ML 750 MG/150 ML BAG IVPB SCH (19:57)
[2019-07-11] MEDS: *HR* Heparin 5,000 UNIT/ML VIAL SQ SCH (22:43)
[2019-07-11] MEDS: Ringers Solution, Lactated 1,000 ML IVC SCH (23:16)
[2019-07-12] MEDS ORDERED: *HR* OxyCODONE/APAP 5/325 TABLET PO ONE (02:45)
[2019-07-12] MEDS: *HR* Heparin 5,000 UNIT/ML VIAL SQ SCH (05:02)
[2019-07-12 06:42] LABS: Hemoglobin 10.1 g/dL (12.9-16.9); Immature Granulocytes % 0.3 % (0-4)
[2019-07-12 06:44] LABS: Basophils % 0.6 %; Eosinophils # 0.2 K/mcL (0.0-0.6); Eosinophils % 6.5 %; Hematocrit 31.4 % (37.5-50.1); Immature Platelets 2.8 % (1.1-6.1); Lymphocytes # 0.9 K/mcL (0.6-4.6); Lymphocytes % 27.6 %; Mean Corpuscular HGB Conc 32.2 g/dL (31.6-35.5); Mean Corpuscular Hemoglobin 29.6 pg (28.0-33.3); Mean Corpuscular Volume 92.1 fL (83.0-100.0); Mean Platelet Volume 10.4 fL (9.4-12.4); Monocytes # 0.2 K/mcL (0.0-1.3); Monocytes % 7.1 %; Neutrophils # 1.9 K/mcL (1.6-8.9); Red Blood Count 3.41 M/mcL (4.19-5.50); Red Cell Distribution Width 16.3 % (11.5-14.5); Segmented Neutrophils % 57.9 %; White Blood Count 3.2 K/mcL (4.3-11.1)
[2019-07-12 06:53] LABS: Platelet Count 68 K/mcL (140-400)
[2019-07-12 07:04] LABS: Alanine Aminotransferase 11 Units/L (7-52); Albumin 3.4 g/dL (3.5-5.7); Albumin/Globulin Ratio 1.1 (1.1-2.2); Alkaline Phosphatase 61 Units/L (34-104); Aspartate Amino Transferase 28 Units/L (13-39); BUN/Creatinine Ratio 32 (6-26); Bilirubin,Total 0.6 mg/dL (0.3-1.0); Blood Urea Nitrogen 41 mg/dL (6-20); Calcium 9.1 mg/dL (8.6-10.3); Carbon Dioxide 32 mEq/L (23-29); Chloride 100 mEq/L (98-107); Globulin 3.2 g/dL (2.4-3.5); Glucose 96 mg/dL (70-105); Magnesium 2.1 mg/dL (1.6-2.6); Osmolality,Calculated 298 (280-300); Phosphorous 4.8 mg/dL (2.7-4.5); Potassium 4.2 mEq/L (3.5-5.1); Sodium 139 mEq/L (136-145); Total Protein 6.6 g/dL (6.4-8.9); eGFR For African Americans > 60 (> 60); eGFR For Non-African Americans 58 (> 60)
[2019-07-12 07:14] VITALS: BP 115/66
[2019-07-12] MEDS ORDERED: Nitroglycerin 0.4 MG TAB.SUBL SL PRN (07:27)
[2019-07-12] MEDS ORDERED: Insulin LISPRO 300 UNITS/3 ML VIAL SQ SCH (07:30)
[2019-07-12] MEDS: Ringers Solution, Lactated 1,000 ML IVC SCH (07:39)
[2019-07-12] MEDS ORDERED: rOPINIRole 1 MG TABLET PO SCH (09:00)
[2019-07-12] MEDS ORDERED: FLUoxetine 20 MG CAPSULE PO SCH (09:00)
[2019-07-12] MEDS ORDERED: Aspirin Enteric Coated 81 MG Tablet PO SCH (09:00)
[2019-07-12] MEDS: levoFLOXacin 750 MG/150 ML 750 MG/150 ML BAG IVPB SCH (09:28)
== END 2019-07-12 12:15 | disposition home or self-care (01) ==
LOC: 3BNU 12:30 → EMEROOARM 12:30 → 3BNU 18:55
PROVIDERS: ADMIT Internal Medicine; ATTEND Internal Medicine

== ENCOUNTER 2020-09-16 00:33 | Inpatient (IN) ==
[2020-09-16] MEDS ORDERED: Ondansetron 4 MG/2 ML VIAL IVP PRN (04:21)
[2020-09-16] MEDS ORDERED: Naloxone 0.4 MG/ML INJ IVP PRN (04:21)
[2020-09-16] MEDS ORDERED: Acetaminophen 325 MG TABLET PO PRN (04:21)
[2020-09-16] MEDS ORDERED: Dextrose Gel 15 GM/37.5 ML TUBE PO PRN ×2 (04:25)
[2020-09-16] MEDS ORDERED: D5% in Water 1,000 ML IVC PRN (04:25)
[2020-09-16] MEDS ORDERED: *HR* Dextrose 50 % in Water (Vial) 50 ML VIAL IVP PRN (04:25)
[2020-09-16] MEDS ORDERED: Ringers Solution, Lactated 1,000 ML IVC SCH (04:30)
[2020-09-16 05:01] LABS: Red Cell Distribution Width 20.1 % (11.5-14.5)
[2020-09-16 05:03] LABS: Basophils % 0.5 %; Eosinophils # 1.6 K/mcL (0.0-0.6); Eosinophils % 24.2 %; Hematocrit 29.9 % (37.5-50.1); Immature Granulocytes % 0.6 % (0-4); Lymphocytes # 0.4 K/mcL (0.6-4.6); Lymphocytes % 6.1 %; Mean Corpuscular HGB Conc 30.1 g/dL (31.6-35.5); Mean Corpuscular Hemoglobin 26.9 pg (28.0-33.3); Mean Corpuscular Volume 89.5 fL (83.0-100.0); Mean Platelet Volume 9.9 fL (9.4-12.4); Monocytes # 0.2 K/mcL (0.0-1.3); Monocytes % 3.5 %; Neutrophils # 4.3 K/mcL (1.6-8.9); Nucleated Red Blood Cells 0.3 /100 WBC (0); Red Blood Count 3.34 M/mcL (4.19-5.50); Segmented Neutrophils % 65.1 %; White Blood Count 6.6 K/mcL (4.3-11.1)
[2020-09-16 05:04] LABS: INR 1.3; Platelet Count 71 K/mcL (140-400); Prothrombin Time 15.1 Seconds (9.4-12.1)
[2020-09-16 05:24] LABS: Alanine Aminotransferase 14 Units/L (7-52); Albumin 3.1 g/dL (3.5-5.7); Albumin/Globulin Ratio 0.7 (1.1-2.2); Alkaline Phosphatase 99 Units/L (34-104); Aspartate Amino Transferase 38 Units/L (13-39); BUN/Creatinine Ratio 29 (6-26); Bilirubin,Total 1.2 mg/dL (0.3-1.0); Blood Urea Nitrogen 25 mg/dL (6-20); Calcium 8.4 mg/dL (8.6-10.3); Carbon Dioxide 33 mEq/L (23-29); Chloride 96 mEq/L (98-107); Chol/HDL Ratio 1.6 (0-4.9); Cholesterol 51 mg/dL (< 200); Globulin 4.3 g/dL (2.4-3.5); Glucose 101 mg/dL (70-105); HDL Cholesterol 32 mg/dL (40-59); LDL Cholesterol,Calculated 9 mg/dL (< 100); Magnesium 1.9 mg/dL (1.6-2.6); Osmolality,Calculated 285 (280-300); Phosphorous 3.8 mg/dL (2.7-4.5); Potassium 4.2 mEq/L (3.5-5.1); Sodium 135 mEq/L (136-145); Total Protein 7.4 g/dL (6.4-8.9); Triglycerides 48 mg/dL (< 150); eGFR For African Americans > 60 (> 60); eGFR For Non-African Americans > 60 (> 60)
[2020-09-16 05:34] LABS: Troponin I 0.25 ng/mL (< 0.04)
[2020-09-16 05:36] LABS: Platelet Estimate Decreased (Normal); Thyroid Stimulating Hormone 0.157 mcIU/mL (0.340-5.600)
[2020-09-16] MEDS ORDERED: *HR* Heparin 5,000 UNIT/ML VIAL IVP ONE (05:37)
[2020-09-16] MEDS ORDERED: *HR* Heparin 5,000 UNIT/ML VIAL IVP PRN (05:37)
[2020-09-16] MEDS ORDERED: Perflutren Lipid Microsphere 1.3 ML in 0.9 % Sodium Chloride 8.7 ML IVP PRN (05:41)
[2020-09-16 05:50] LABS: VBG HCO3 38 mEq/L (21-27); VBG PCO2 78 mmHg (41-51); VBG PH 7.29 pH Units (7.32-7.42); VBG PO2 38 mmHg (25-50)
[2020-09-16 05:51] LABS: Heparin anti-factor XA UFH < 0.04 IU/mL (0.30-0.70)
[2020-09-16] MEDS ORDERED: *HR* Heparin 5,000 UNIT/ML VIAL SQ SCH (06:00)
[2020-09-16] MEDS ORDERED: Vancomycin 2,000 MG/520 ML IV.SOLN IVPB SCH ×2 (06:00→19:00)
[2020-09-16] MEDS: Heparin 25,000UNIT/250ML 1/2NS 25,000 UNIT/250 ML IV.SOLN IVC SCH (06:55)
[2020-09-16] MEDS: Ipratropium/Albuterol Neb 3 ML IH SCH ×4 (07:32→20:20)
[2020-09-16] MEDS ORDERED: Bumetanide 1 MG TABLET PO SCH (08:00)
[2020-09-16] MEDS ORDERED: cefTRIAXone 1,000 MG in Water for inj. (sterile) 10 ML IVP SCH (09:00)
[2020-09-16] MEDS: Insulin LISPRO 300 UNITS/3 ML VIAL SUBQ SCH ×5 (09:55→23:00)
[2020-09-16 09:59] LABS: VBG HCO3 31 mEq/L (21-27); VBG PCO2 47 mmHg (41-51); VBG PH 7.43 pH Units (7.32-7.42); VBG PO2 199 mmHg (25-50)
[2020-09-16] MEDS ORDERED: Ipratropium Neb 0.5 MG NEBULIZER IH PRN (11:18)
[2020-09-16] MEDS ORDERED: Acetaminophen IV 1,000 MG/100 ML BAG IVPB ONE (12:42)
[2020-09-16] MEDS ORDERED: Lactulose 200 GM, Sodium Chloride IRRigation 700 ML RC ONE (13:26)
[2020-09-16 13:59] LABS: Bacteria,Urine Few per hpf (None-Few); Bilirubin,Urine Negative (Negative); Blood,Urine Small (Negative); Clarity,Urine Clear (Clear); Color,Urine Light-Yellow (Yellow); Glucose,Urine (UA) Normal (Normal); Hyaline Casts,Urine Few per lpf (None Seen); Ketones,Urine Negative (Negative); Leukocyte Esterase,Urine Negative (Negative); Mucus,Urine Few per lpf (None-Few); Nitrite,Urine Negative (Negative); PH,Urine 5.5 pH Units (5.0-8.0); Protein,Urine Trace mg/dL (Neg-Trace); RBC,Urine 0-3 per hpf (0-3); Specific Gravity,Urine 1.014 (1.010-1.025); Squamous Epithelial Cell,Urine Few per hpf (None-Few); Urobilinogen,Urine Normal (Normal); WBC,Urine 0-3 per hpf (0-3)
[2020-09-16 14:35] LABS: Adenovirus Not Detected (Not Detect); Coronavirus 229E Not Detected (Not Detect); Coronavirus HKU1 Not Detected (Not Detect); Coronavirus NL63 Not Detected (Not Detect); Coronavirus OC43 Not Detected (Not Detect); Human Metapneumovirus Not Detected (Not Detect); Human Rhinovirus/Enterovirus Not Detected (Not Detect); Influenza A Subtype 2009 H1 Not Detected (Not Detect); SARS-CoV-2 Not Detected (Not Detect)
[2020-09-16 14:36] LABS: Bordetella Pertussis Not Detected (Not Detect); Chlamydophila pneumoniae Not Detected (Not Detect); Influenza B Not Detected (Not Detect); Mycoplasma pneumoniae Not Detected (Not Detect); Parainfluenza Virus 1 Not Detected (Not Detect); Parainfluenza Virus 2 Not Detected (Not Detect); Parainfluenza Virus 3 Not Detected (Not Detect); Parainfluenza Virus 4 Not Detected (Not Detect); Respiratory Syncytial Virus Not Detected (Not Detect)
[2020-09-16] MEDS: Aspirin Enteric Coated 81 MG Tablet PO SCH (15:29)
[2020-09-16] MEDS: FLUoxetine 20 MG CAPSULE PO SCH (15:29)
[2020-09-16] MEDS: levoFLOXacin 750 MG/150 ML 750 MG/150 ML BAG IVPB SCH (16:06)
[2020-09-16 16:40] LABS: VBG HCO3 32 mEq/L (21-27); VBG PCO2 38 mmHg (41-51); VBG PH 7.54 pH Units (7.32-7.42); VBG PO2 225 mmHg (25-50)
[2020-09-16] MEDS: Lactulose Oral Soln 20 GM/30 ML UDC PO SCH ×2 (17:00→20:17)
[2020-09-16] MEDS ORDERED: Lactulose Oral Soln 20 GM/30 ML UDC PO SCH (21:00)
[2020-09-16] MEDS ORDERED: Insulin LISPRO 300 UNITS/3 ML VIAL SUBQ SCH (21:00)
[2020-09-16] MEDS ORDERED: Insulin DETEMIR 100 UNIT/ML X5UNITS SUBQ SCH (21:00)
[2020-09-16] MEDS: *HR* Heparin 5,000 UNIT/ML VIAL IVP PRN (22:55)
[2020-09-17] MEDS: Ipratropium/Albuterol Neb 3 ML IH SCH ×8 (00:15→23:29)
[2020-09-17] MEDS: Heparin 25,000UNIT/250ML 1/2NS 25,000 UNIT/250 ML IV.SOLN IVC SCH ×2 (01:45→15:37)
[2020-09-17 03:03] LABS: Hemoglobin 8.4 g/dL (12.9-16.9)
[2020-09-17 03:03] LABS: VBG HCO3 32 mEq/L (21-27); VBG PCO2 67 mmHg (41-51); VBG PH 7.29 pH Units (7.32-7.42); VBG PO2 117 mmHg (25-50)
[2020-09-17 03:05] LABS: Hematocrit 29.3 % (37.5-50.1); Immature Platelets 2.4 % (1.1-6.1); Mean Corpuscular HGB Conc 28.7 g/dL (31.6-35.5); Mean Corpuscular Hemoglobin 26.7 pg (28.0-33.3); Mean Platelet Volume 9.3 fL (9.4-12.4); Nucleated Red Blood Cells 0.3 /100 WBC (0); Red Blood Count 3.15 M/mcL (4.19-5.50); White Blood Count 6.6 K/mcL (4.3-11.1)
[2020-09-17 03:06] LABS: Platelet Count 72 K/mcL (140-400)
[2020-09-17 03:21] LABS: Alanine Aminotransferase 14 Units/L (7-52); Albumin/Globulin Ratio 0.7 (1.1-2.2); Alkaline Phosphatase 90 Units/L (34-104); Aspartate Amino Transferase 41 Units/L (13-39); BUN/Creatinine Ratio 30 (6-26); Bilirubin,Direct 0.4 mg/dL (0.0-0.2); Bilirubin,Indirect 0.9 mg/dL (0.0-1.0); Bilirubin,Total 1.3 mg/dL (0.3-1.0); Blood Urea Nitrogen 27 mg/dL (6-20); Calcium 8.2 mg/dL (8.6-10.3); Carbon Dioxide 33 mEq/L (23-29); Chloride 97 mEq/L (98-107); Globulin 4.2 g/dL (2.4-3.5); Glucose 106 mg/dL (70-105); Magnesium 1.9 mg/dL (1.6-2.6); Osmolality,Calculated 284 (280-300); Potassium 4.1 mEq/L (3.5-5.1); Sodium 134 mEq/L (136-145); Total Protein 7.2 g/dL (6.4-8.9); eGFR For African Americans > 60 (> 60); eGFR For Non-African Americans > 60 (> 60)
[2020-09-17 03:24] LABS: Anisocytosis 1+ (Not Present); Eosinophils # 1.2 K/mcL (0.0-0.6); Monocytes # 0.4 K/mcL (0.0-1.3); Platelet Estimate Slight Decrease (Normal); Toxic Granulation Present (Not Present)
[2020-09-17] MEDS ORDERED: Vancomycin 1,500 MG/265 ML IV.SOLN IVPB SCH ×2 (06:00→07:00)
[2020-09-17] MEDS: Lactulose Oral Soln 20 GM/30 ML UDC PO SCH ×2 (08:13→20:15)
[2020-09-17] MEDS: Insulin LISPRO 300 UNITS/3 ML VIAL SUBQ SCH ×3 (08:13→20:14)
[2020-09-17] MEDS: FLUoxetine 20 MG CAPSULE PO SCH (08:13)
[2020-09-17] MEDS: Aspirin Enteric Coated 81 MG Tablet PO SCH (08:13)
[2020-09-17] MEDS: Dexmedetomidine HCl 400 MCG/100 ML MLS IVC SCH ×2 (10:07→22:53)
[2020-09-17] MEDS: *HR* Heparin 5,000 UNIT/ML VIAL IVP PRN (10:13)
[2020-09-17] MEDS ORDERED: Bumetanide 1 MG/4 ML VIAL IVP SCH (10:30)
[2020-09-17] MEDS: levoFLOXacin 750 MG/150 ML 750 MG/150 ML BAG IVPB SCH (12:05)
[2020-09-17] MEDS: Bumetanide 1 MG/4 ML VIAL IVP SCH (17:58)
[2020-09-17 18:31] LABS: Hepatitis B Surface Antigen Nonreactive (Nonreactive)
[2020-09-17 19:01] LABS: Hepatitis B Core IgM Nonreactive (Nonreactive)
[2020-09-17 19:02] LABS: Hepatitis A Antibody IgM Nonreactive (Nonreactive); Hepatitis C Virus Antibody Nonreactive (Nonreactive)
[2020-09-17 19:45] LABS: VBG HCO3 34 mEq/L (21-27); VBG PCO2 72 mmHg (41-51); VBG PH 7.28 pH Units (7.32-7.42); VBG PO2 241 mmHg (25-50)
[2020-09-18] MEDS ORDERED: Vancomycin 1,250 MG/262.5 ML IV.SOLN IVPB SCH
[2020-09-18 01:07] LABS: Red Cell Distribution Width 19.7 % (11.5-14.5)
[2020-09-18 01:08] LABS: Basophils % 0.6 %; Eosinophils # 0.4 K/mcL (0.0-0.6); Eosinophils % 12.7 %; Hematocrit 23.1 % (37.5-50.1); Hemoglobin 6.7 g/dL (12.9-16.9); Immature Granulocytes % 1.9 % (0-4); Immature Platelets 2.7 % (1.1-6.1); Lymphocytes % 17.1 %; Mean Corpuscular Hemoglobin 26.8 pg (28.0-33.3); Mean Corpuscular Volume 92.4 fL (83.0-100.0); Mean Platelet Volume 9.3 fL (9.4-12.4); Monocytes # 0.2 K/mcL (0.0-1.3); Monocytes % 6.7 %; White Blood Count 3.2 K/mcL (4.3-11.1)
[2020-09-18 01:09] LABS: VBG HCO3 31 mEq/L (21-27); VBG PCO2 58 mmHg (41-51); VBG PH 7.34 pH Units (7.32-7.42); VBG PO2 103 mmHg (25-50)
[2020-09-18 01:09] LABS: Lymphocytes # 0.6 K/mcL (0.6-4.6); Platelet Count 55 K/mcL (140-400)
[2020-09-18 01:27] LABS: Albumin 2.5 g/dL (3.5-5.7); Albumin/Globulin Ratio 0.6 (1.1-2.2); Bilirubin,Direct 0.4 mg/dL (0.0-0.2); Bilirubin,Indirect 0.7 mg/dL (0.0-1.0); Bilirubin,Total 1.1 mg/dL (0.3-1.0); Calcium 7.7 mg/dL (8.6-10.3); Globulin 3.9 g/dL (2.4-3.5); Magnesium 1.9 mg/dL (1.6-2.6); Potassium 4.7 mEq/L (3.5-5.1); Total Protein 6.4 g/dL (6.4-8.9)
[2020-09-18] MEDS: Insulin LISPRO 300 UNITS/3 ML VIAL SUBQ SCH ×4 (02:14→16:30)
[2020-09-18] MEDS: Ipratropium/Albuterol Neb 3 ML IH SCH ×6 (03:24→23:12)
[2020-09-18] MEDS: Heparin 25,000UNIT/250ML 1/2NS 25,000 UNIT/250 ML IV.SOLN IVC SCH (03:40)
[2020-09-18] MEDS ORDERED: 0.9 % Sodium Chloride 250 ML IVC SCH (05:00)
[2020-09-18] MEDS ORDERED: Bumetanide 1 MG/4 ML VIAL IVP ONE ×2 (07:00)
[2020-09-18] MEDS: Lactulose Oral Soln 20 GM/30 ML UDC PO SCH ×2 (08:38→20:09)
[2020-09-18] MEDS: Bumetanide 1 MG/4 ML VIAL IVP SCH ×2 (08:39→08:52)
[2020-09-18] MEDS ORDERED: FLUoxetine HCl Oral Soln 20 MG/5 ML UDC PO SCH (09:00)
[2020-09-18] MEDS ORDERED: 0.9 % Sodium Chloride 250 ML IV ONE (10:41)
[2020-09-18] MEDS: levoFLOXacin 750 MG/150 ML 750 MG/150 ML BAG IVPB SCH (13:37)
[2020-09-18 14:20] LABS: Basophils % 0.8 %; Eosinophils # 0.5 K/mcL (0.0-0.6); Eosinophils % 13.8 %; Hematocrit 26.8 % (37.5-50.1); Hemoglobin 7.9 g/dL (12.9-16.9); Immature Granulocytes % 3.7 % (0-4); Immature Platelets 3.5 % (1.1-6.1); Lymphocytes # 0.6 K/mcL (0.6-4.6); Lymphocytes % 15.8 %; Mean Corpuscular HGB Conc 29.5 g/dL (31.6-35.5); Mean Corpuscular Volume 91.5 fL (83.0-100.0); Mean Platelet Volume 10.1 fL (9.4-12.4); Monocytes # 0.3 K/mcL (0.0-1.3); Monocytes % 7.6 %; Neutrophils # 2.1 K/mcL (1.6-8.9); Red Blood Count 2.93 M/mcL (4.19-5.50); Red Cell Distribution Width 18.8 % (11.5-14.5); Segmented Neutrophils % 58.3 %; White Blood Count 3.6 K/mcL (4.3-11.1)
[2020-09-18 14:38] LABS: Platelet Count 64 K/mcL (140-400)
[2020-09-18 19:04] VITALS: BP 107/72
[2020-09-18] MEDS ORDERED: Vancomycin 1,500 MG/265 ML IV.SOLN IVPB SCH (20:00)
[2020-09-18] MEDS ORDERED: rOPINIRole 1 MG, rOPINIRole 3 MG PO SCH (21:00)
[2020-09-18 21:54] LABS: Hematocrit 25.4 % (37.5-50.1); Hemoglobin 7.7 g/dL (12.9-16.9)
[2020-09-19] MEDS: Ipratropium/Albuterol Neb 3 ML IH SCH (04:07)
== END 2020-09-19 00:45 | disposition left against medical advice (07) | DRG 871 ==
LOC: 3ANU → OBSVTOIN 03:09 → SUATTDRO 03:09 → 2NNU 14:13
PROVIDERS: ADMIT Internal Medicine; ATTEND Internal Medicine